=== PATIENT | female | born 1975 | race Caucasian/White ===

== ENCOUNTER → 2021-12-25 07:16 | Outpatient (CLI) | payer BC, SELFPAY ==
[2021-12-25 20:39] LABS: Basophils # 0.1 K/mm3 (0-0.2); Basophils % 0.6 % (0.1-2.0); Eosinophils # 0.5 K/mm3 (0.0-0.4); Eosinophils % 5.8 % (0.1-12.0); Hematocrit 39.4 % (37.0-47.0); Hemoglobin 11.3 g/dL (12.2-16.2); Lymphocytes # 0.4 K/mm3 (0.7-4.5); Lymphocytes % 4.3 % (10-50); Mean Corpuscular HGB Conc 28.8 g/dL (31.8-35.4); Mean Corpuscular Hemoglobin 24.9 pg (27.0-31.2); Mean Corpuscular Volume 86.4 fl (81-99); Mean Platelet Volume 10.2 fl (7.4-10.4); Monocytes # 0.4 K/mm3 (0.1-1.0); Monocytes % 5.2 % (1.7-9.3); Neutrophils # 6.9 K/mm3 (1.8-7.8); Neutrophils % 84.1 % (37.0-80.0); Platelet Count 457 K/mm3 (142-424); Red Blood Count 4.56 M/mm3 (4.20-5.40); Red Cell Distribution Width 22.4 % (11.5-17.5); White Blood Count 8.2 K/mm3 (4.8-10.8)
[2021-12-25 20:45] LABS: Microalbumin < 6.000 mg/L (0-16.7)
[2021-12-25 20:52] LABS: Free T4 (Free Thyroxine) 1.27 ng/dl (0.78-2.19)
[2021-12-25 20:59] LABS: Alanine Aminotransferase 29 U/L (12-78); Albumin Level 3.7 g/dl (3.5-5.0); Albumin/Globulin Ratio 1.1 (1.1-1.8); Alkaline Phosphatase 115 U/L (38-126); Anion Gap 10.4 mEq/L (5-15); Aspartate Amino Transferase 30 U/L (14-36); Blood Urea Nitrogen 12 mg/dl (7-17); Calcium 9.8 mg/dl (8.4-10.2); Carbon Dioxide 26 mmol/L (22.0-30.0); Chloride 107 mmol/L (98-107); Chol/HDL Ratio 5.9 (1-3.5); Cholesterol 266 mg/dl (140-200); Estimated Glomerular Filt Rate 49 ml/min (>60); GFR (African American) 59 ML/MIN (>60); Globulin 3.3 g/dL (1.3-3.2); Glucose 94 mg/dl (74-100); HDL Cholesterol 45 mg/dl (40-60); Potassium 4.4 mmoL/L (3.5-5.1); Sodium 139 mmol/L (136-145); Triglycerides 296 mg/dl (30-150); VLDL Cholesterol 59 mg/dL (0-40)
[2021-12-25 21:03] LABS: Bilirubin,Total 0.1 mg/dl (0.2-1.3)
[2021-12-25 21:16] LABS: 25-OH Vitamin D, Total 49.9 ng/mL (30-100)
[2021-12-25 21:29] LABS: Thyroid Stimulating Hormone 0.09 uIU/mL (0.465-4.68)
[2021-12-25 21:50] LABS: Vitamin B12 > 1000 pg/mL (239-931)
[2021-12-27 08:25] LABS: Direct LDL Cholesterol 162 mg/dL (100-129)
== END ==
PROVIDERS: PCP Nurse Practitioner; Visit Provider Nurse Practitioner
DX: I10 Essential (primary) hypertension (principal); R30.0 Dysuria; E55.9 Vitamin D deficiency, unspecified; E03.9 Hypothyroidism, unspecified; D64.9 Anemia, unspecified; R73.01 Impaired fasting glucose; E53.8 Deficiency of other specified B group vitamins; B96.29 Other Escherichia coli [E. coli] as the cause of diseases classified elsewhere
CPT/HCPCS: 80053; 80061; 82043; 82306; 82607; 83036; 84439; 84443; 85025; 87086; 87088; 87186

== ENCOUNTER → 2022-02-27 13:43 | Outpatient (CLI) | payer BC, SELFPAY ==
[2022-02-27 19:16] LABS: Alanine Aminotransferase 25 U/L (12-78); Albumin Level 4.1 g/dl (3.5-5.0); Albumin/Globulin Ratio 1.4 (1.1-1.8); Alkaline Phosphatase 122 U/L (38-126); Anion Gap 15.9 mEq/L (5-15); Aspartate Amino Transferase 30 U/L (14-36); Bilirubin,Total 0.3 mg/dl (0.2-1.3); Blood Urea Nitrogen 11 mg/dl (7-17); Calcium 10.2 mg/dl (8.4-10.2); Carbon Dioxide 26 mmol/L (22.0-30.0); Chloride 102 mmol/L (98-107); Estimated Glomerular Filt Rate 54 ml/min (>60); GFR (African American) 65 ML/MIN (>60); Globulin 2.9 g/dL (1.3-3.2); Glucose 91 mg/dl (74-100); Potassium 3.9 mmoL/L (3.5-5.1); Sodium 140 mmol/L (136-145)
[2022-02-27 19:33] LABS: Free T4 (Free Thyroxine) 1.06 ng/dl (0.78-2.19)
[2022-02-27 19:47] LABS: Thyroid Stimulating Hormone < 0.02 uIU/mL (0.465-4.68)
[2022-02-27 20:02] LABS: Hemoglobin A1C 5.5 % (4.0-6.0)
== END ==
PROVIDERS: PCP Nurse Practitioner; Visit Provider Nurse Practitioner
DX: E03.9 Hypothyroidism, unspecified (principal); R73.01 Impaired fasting glucose; N30.00 Acute cystitis without hematuria; Z79.84 Long term (current) use of oral hypoglycemic drugs
CPT/HCPCS: 80053; 83036; 84439; 84443; 87086

== ENCOUNTER → 2022-06-03 23:27 | Outpatient (CLI) | payer BC, SELFPAY ==
[2022-06-03 18:29] LABS: Basophils # 0.1 K/mm3 (0-0.2); Basophils % 0.7 % (0.1-2.0); Eosinophils # 0.4 K/mm3 (0.0-0.4); Eosinophils % 4.4 % (0.1-12.0); Hematocrit 45.2 % (37.0-47.0); Hemoglobin 14.5 g/dL (12.2-16.2); Lymphocytes # 0.4 K/mm3 (0.7-4.5); Lymphocytes % 4.1 % (10-50); Mean Corpuscular HGB Conc 32.1 g/dL (31.8-35.4); Mean Corpuscular Hemoglobin 30.8 pg (27.0-31.2); Mean Corpuscular Volume 95.8 fl (81-99); Mean Platelet Volume 9.7 fl (7.4-10.4); Monocytes # 0.4 K/mm3 (0.1-1.0); Monocytes % 4.5 % (1.7-9.3); Neutrophils # 8.5 K/mm3 (1.8-7.8); Neutrophils % 86.3 % (37.0-80.0); Platelet Count 372 K/mm3 (142-424); Red Blood Count 4.72 M/mm3 (4.20-5.40); Red Cell Distribution Width 15.2 % (11.5-17.5); White Blood Count 9.8 K/mm3 (4.8-10.8)
[2022-06-03 18:32] LABS: MANUAL DIFFERENTIAL MANUAL DIFFERENTIAL (MANUAL DIFF)
[2022-06-03 18:34] LABS: Alanine Aminotransferase 37 U/L (12-78); Albumin Level 4.3 g/dl (3.5-5.0); Albumin/Globulin Ratio 1.4 (1.1-1.8); Alkaline Phosphatase 105 U/L (38-126); Anion Gap 13.2 mEq/L (5-15); Aspartate Amino Transferase 34 U/L (14-36); Bilirubin,Total 0.4 mg/dl (0.2-1.3); Blood Urea Nitrogen 12 mg/dl (7-17); Calcium 9.3 mg/dl (8.4-10.2); Carbon Dioxide 24 mmol/L (22.0-30.0); Chloride 104 mmol/L (98-107); Chol/HDL Ratio 6.6 (1-3.5); Cholesterol 271 mg/dl (140-200); Estimated Glomerular Filt Rate 60 ml/min (>60); GFR (African American) 73 ML/MIN (>60); Glucose 84 mg/dl (74-100); HDL Cholesterol 41 mg/dl (40-60); Potassium 4.2 mmoL/L (3.5-5.1); Sodium 137 mmol/L (136-145); Total Protein,Serum 7.3 g/dl (6.3-8.2); Triglycerides 374 mg/dl (30-150); VLDL Cholesterol 75 mg/dL (0-40)
[2022-06-03 18:51] LABS: Direct LDL Cholesterol 185.02 mg/dL (100-129)
[2022-06-03 18:58] LABS: Free T4 (Free Thyroxine) 0.96 ng/dl (0.78-2.19)
[2022-06-03 19:22] LABS: Eosinophils % 6 % (0-3); Lymphocytes % 5 % (10-50); Monocytes % 10 % (2-9); Neutrophils % 79 % (42-76); Platelet Estimate Normal; RBC Morphology Normal; Total Cells Counted 100
== END ==
PROVIDERS: PCP Nurse Practitioner; Visit Provider Nurse Practitioner
DX: E03.9 Hypothyroidism, unspecified (principal); I10 Essential (primary) hypertension; E78.5 Hyperlipidemia, unspecified; R73.01 Impaired fasting glucose; D64.9 Anemia, unspecified
CPT/HCPCS: 80053; 80061; 83036; 84439; 84443; 85007; 85025

== ENCOUNTER → 2022-07-08 11:08 | Outpatient (CLI) | payer BC, SELFPAY | PROVIDERS: PCP Nurse Practitioner; Visit Provider Nurse Practitioner | DX: R30.0 Dysuria (principal); B96.29 Other Escherichia coli [E. coli] as the cause of diseases classified elsewhere | CPT/HCPCS: 87086; 87088; 87186 ==

== ENCOUNTER → 2022-07-08 19:14 | Outpatient (CLI) | payer BC, SELFPAY | PROVIDERS: PCP Nurse Practitioner; Visit Provider Nurse Practitioner | DX: R30.0 Dysuria (principal) ==

== ENCOUNTER → 2022-09-19 20:45 | Outpatient (CLI) | payer BC, SELFPAY | PROVIDERS: PCP Nurse Practitioner; Visit Provider Nurse Practitioner | DX: R30.0 Dysuria (principal); B95.2 Enterococcus as the cause of diseases classified elsewhere | CPT/HCPCS: 87086; 87088; 87186 ==

== ENCOUNTER → 2022-11-07 10:40 | Outpatient (CLI) | payer BC, SELFPAY ==
[2022-11-07 18:19] LABS: Basophils % 0.2 % (0.1-2.0); Eosinophils # 0.3 K/mm3 (0.0-0.4); Eosinophils % 3.9 % (0.1-12.0); Hemoglobin 14.3 g/dL (12.2-16.2); Lymphocytes # 0.5 K/mm3 (0.7-4.5); Lymphocytes % 6.7 % (10-50); Mean Corpuscular HGB Conc 31.7 g/dL (31.8-35.4); Mean Corpuscular Hemoglobin 30.2 pg (27.0-31.2); Mean Corpuscular Volume 95.3 fl (81-99); Monocytes # 0.5 K/mm3 (0.1-1.0); Monocytes % 6.3 % (1.7-9.3); Neutrophils # 6.6 K/mm3 (1.8-7.8); Neutrophils % 82.9 % (37.0-80.0); Platelet Count 313 K/mm3 (142-424); Red Blood Count 4.72 M/mm3 (4.20-5.40); Red Cell Distribution Width 14.1 % (11.5-17.5); White Blood Count 7.9 K/mm3 (4.8-10.8)
[2022-11-07 18:26] LABS: Alanine Aminotransferase 60 U/L (12-78); Albumin Level 4.2 g/dl (3.5-5.0); Albumin/Globulin Ratio 1.4 (1.1-1.8); Alkaline Phosphatase 127 U/L (38-126); Anion Gap 13.2 mEq/L (5-15); Aspartate Amino Transferase 41 U/L (14-36); Bilirubin,Total 0.5 mg/dl (0.2-1.3); Blood Urea Nitrogen 15 mg/dl (7-17); Calcium 9.5 mg/dl (8.4-10.2); Carbon Dioxide 23 mmol/L (22.0-30.0); Chloride 105 mmol/L (98-107); Chol/HDL Ratio 6.4 (1-3.5); Cholesterol 257 mg/dl (140-200); Estimated Glomerular Filt Rate 44 ml/min (>60); GFR (African American) 54 ML/MIN (>60); Globulin 2.9 g/dL (1.3-3.2); Glucose 86 mg/dl (74-100); HDL Cholesterol 40 mg/dl (40-60); Potassium 4.2 mmoL/L (3.5-5.1); Sodium 137 mmol/L (136-145); Total Protein,Serum 7.1 g/dl (6.3-8.2); Triglycerides 261 mg/dl (30-150); VLDL Cholesterol 52 mg/dL (0-40)
[2022-11-07 18:36] LABS: Direct LDL Cholesterol 171.13 mg/dL (100-129)
[2022-11-07 18:42] LABS: Free T4 (Free Thyroxine) 1.34 ng/dl (0.78-2.19)
[2022-11-07 18:43] LABS: 25-OH Vitamin D, Total 44.2 ng/mL (30-100)
[2022-11-07 18:54] LABS: Hemoglobin A1C 5.1 % (4.0-6.0)
[2022-11-07 18:57] LABS: Thyroid Stimulating Hormone < 0.02 uIU/mL (0.465-4.68)
[2022-11-07 19:50] LABS: Vitamin B12 > 1000 pg/mL (239-931)
== END ==
PROVIDERS: PCP Nurse Practitioner; Visit Provider Nurse Practitioner
DX: D64.9 Anemia, unspecified (principal); E03.9 Hypothyroidism, unspecified; E53.8 Deficiency of other specified B group vitamins; E55.9 Vitamin D deficiency, unspecified; E66.9 Obesity, unspecified; E78.5 Hyperlipidemia, unspecified; I10 Essential (primary) hypertension; K21.9 Gastro-esophageal reflux disease without esophagitis; R73.01 Impaired fasting glucose
CPT/HCPCS: 80053; 80061; 82306; 82607; 83036; 84439; 84443; 85025

== ENCOUNTER → 2023-01-07 11:00 | Outpatient (CLI) | payer BC, SELFPAY | PROVIDERS: PCP Nurse Practitioner; Visit Provider Nurse Practitioner | DX: N30.00 Acute cystitis without hematuria (principal) | CPT/HCPCS: 87086 ==

== ENCOUNTER → 2023-02-04 23:16 | Outpatient (CLI) | payer BC, SELFPAY ==
[2023-02-04 18:33] LABS: Alanine Aminotransferase 45 U/L (12-78); Albumin Level 3.9 g/dl (3.5-5.0); Albumin/Globulin Ratio 1.3 (1.1-1.8); Alkaline Phosphatase 97 U/L (38-126); Anion Gap 16.9 mEq/L (5-15); Aspartate Amino Transferase 36 U/L (14-36); Bilirubin,Total 0.3 mg/dl (0.2-1.3); Blood Urea Nitrogen 16 mg/dl (7-17); Calcium 9.5 mg/dl (8.4-10.2); Carbon Dioxide 21 mmol/L (22.0-30.0); Chloride 105 mmol/L (98-107); Estimated Glomerular Filt Rate 54 ml/min (>60); GFR (African American) 65 ML/MIN (>60); Globulin 3.1 g/dL (1.3-3.2); Glucose 64 mg/dl (74-100); Potassium 3.9 mmoL/L (3.5-5.1); Sodium 139 mmol/L (136-145)
[2023-02-04 21:56] LABS: Free T4 (Free Thyroxine) 1.39 ng/dl (0.78-2.19)
[2023-02-05 00:29] LABS: Thyroid Stimulating Hormone 1.72 uIU/mL (0.465-4.68)
== END ==
PROVIDERS: PCP Nurse Practitioner; Visit Provider Nurse Practitioner
DX: E03.9 Hypothyroidism, unspecified (principal); E66.9 Obesity, unspecified
CPT/HCPCS: 80053; 84439; 84443

== ENCOUNTER 2023-04-28 23:20 | Outpatient (CLI) | payer BC, SELFPAY ==
[2023-04-28 18:34] LABS: Hemoglobin A1C 4.7 % (4.0-6.0)
[2023-04-28 18:37] LABS: Alanine Aminotransferase 47 U/L (12-78); Albumin Level 3.9 g/dl (3.5-5.0); Albumin/Globulin Ratio 1.6 (1.1-1.8); Alkaline Phosphatase 85 U/L (38-126); Anion Gap 12.5 mEq/L (5-15); Aspartate Amino Transferase 45 U/L (14-36); Bilirubin,Total 0.5 mg/dl (0.2-1.3); Blood Urea Nitrogen 15 mg/dl (7-17); Carbon Dioxide 25 mmol/L (22.0-30.0); Chloride 101 mmol/L (98-107); Chol/HDL Ratio 6.3 (1-3.5); Cholesterol 222 mg/dl (140-200); Estimated Glomerular Filt Rate 38 ml/min (>60); GFR (African American) 45 ML/MIN (>60); Globulin 2.5 g/dL (1.3-3.2); Glucose 81 mg/dl (74-100); HDL Cholesterol 35 mg/dl (40-60); Potassium 3.5 mmoL/L (3.5-5.1); Sodium 135 mmol/L (136-145); Total Protein,Serum 6.4 g/dl (6.3-8.2); Triglycerides 215 mg/dl (30-150); VLDL Cholesterol 43 mg/dL (0-40)
[2023-04-28 18:45] LABS: Creatinine,Urine Random 136 mg/dL (Not Estab.)
[2023-04-28 18:48] LABS: Direct LDL Cholesterol 149.92 mg/dL (100-129)
[2023-04-28 18:52] LABS: Microalbumin/Creatinine Ratio 35.3
[2023-04-28 18:53] LABS: 25-OH Vitamin D, Total 67.6 ng/mL (30-100); Free T4 (Free Thyroxine) 1.27 ng/dl (0.78-2.19)
[2023-04-28 19:07] LABS: Thyroid Stimulating Hormone 1.97 uIU/mL (0.465-4.68)
[2023-04-28 19:26] LABS: Vitamin B12 617 pg/mL (239-931)
== END 2023-04-28 23:59 ==
LOC: LAB.DROPOF 23:20
PROVIDERS: PCP Nurse Practitioner; Visit Provider Nurse Practitioner
DX: E03.9 Hypothyroidism, unspecified (principal); E53.8 Deficiency of other specified B group vitamins; E55.9 Vitamin D deficiency, unspecified; E78.5 Hyperlipidemia, unspecified; I10 Essential (primary) hypertension; R73.01 Impaired fasting glucose; E66.9 Obesity, unspecified; Z68.38 Body mass index [BMI] 38.0-38.9, adult
CPT/HCPCS: 80053; 80061; 82043; 82306; 82570; 82607; 83036; 84439; 84443

== ENCOUNTER 2023-07-17 18:53 | Outpatient (CLI) | payer BC, SELFPAY ==
[2023-07-17 18:14] LABS: Alanine Aminotransferase 36 U/L (12-78); Albumin Level 3.9 g/dl (3.5-5.0); Albumin/Globulin Ratio 1.6 (1.1-1.8); Alkaline Phosphatase 74 U/L (38-126); Anion Gap 12.2 mEq/L (5-15); Aspartate Amino Transferase 27 U/L (14-36); Bilirubin,Total 0.4 mg/dl (0.2-1.3); Blood Urea Nitrogen 25 mg/dl (7-17); Carbon Dioxide 26 mmol/L (22.0-30.0); Chloride 105 mmol/L (98-107); Estimated Glomerular Filt Rate 37 ml/min (>60); GFR (African American) 45 ML/MIN (>60); Globulin 2.5 g/dL (1.3-3.2); Glucose 81 mg/dl (74-100); Potassium 4.2 mmoL/L (3.5-5.1); Sodium 139 mmol/L (136-145); Total Protein,Serum 6.4 g/dl (6.3-8.2)
== END 2023-07-17 23:59 ==
LOC: LAB.DROPOF 18:53
PROVIDERS: PCP Nurse Practitioner; Visit Provider Nurse Practitioner
DX: E66.9 Obesity, unspecified (principal); Z68.36 Body mass index [BMI] 36.0-36.9, adult
CPT/HCPCS: 80053

== ENCOUNTER 2023-12-11 11:18 | Outpatient (CLI) | payer BC, SELFPAY ==
[2023-12-11 20:04] LABS: Basophils % 0.3 % (0.1-2.0); Eosinophils # 0.4 K/mm3 (0.0-0.4); Eosinophils % 6.8 % (0.1-12.0); Hematocrit 41.8 % (37.0-47.0); Hemoglobin 12.9 g/dL (12.2-16.2); Lymphocytes # 0.4 K/mm3 (0.7-4.5); Lymphocytes % 6.3 % (10-50); Mean Corpuscular HGB Conc 30.9 g/dL (31.8-35.4); Mean Corpuscular Hemoglobin 30.3 pg (27.0-31.2); Mean Corpuscular Volume 97.8 fl (81-99); Mean Platelet Volume 9.8 fl (7.4-10.4); Monocytes # 0.4 K/mm3 (0.1-1.0); Monocytes % 7.1 % (1.7-9.3); Neutrophils # 4.6 K/mm3 (1.8-7.8); Neutrophils % 79.6 % (37.0-80.0); Platelet Count 300 K/mm3 (142-424); Red Blood Count 4.27 M/mm3 (4.20-5.40); Red Cell Distribution Width 14.1 % (11.5-17.5); White Blood Count 5.8 K/mm3 (4.8-10.8)
[2023-12-11 20:07] LABS: Creatinine,Urine Random 19 mg/dL (Not Estab.)
[2023-12-11 20:10] LABS: Alanine Aminotransferase 36 U/L (12-78); Albumin Level 3.4 g/dl (3.5-5.0); Albumin/Globulin Ratio 1.2 (1.1-1.8); Alkaline Phosphatase 82 U/L (38-126); Anion Gap 7.1 mEq/L (5-15); Aspartate Amino Transferase 29 U/L (14-36); Bilirubin,Total 0.5 mg/dl (0.2-1.3); Blood Urea Nitrogen 21 mg/dl (7-17); Calcium 9.4 mg/dl (8.4-10.2); Carbon Dioxide 29 mmol/L (22.0-30.0); Chloride 103 mmol/L (98-107); Chol/HDL Ratio 5.8 (1-3.5); Cholesterol 261 mg/dl (140-200); Estimated Glomerular Filt Rate 48 ml/min (>60); GFR (African American) 59 ML/MIN (>60); Globulin 2.9 g/dL (1.3-3.2); Glucose 65 mg/dl (74-100); HDL Cholesterol 45 mg/dl (40-60); Microalbumin < 6.000 mg/L (0-16.7); Potassium 4.1 mmoL/L (3.5-5.1); Sodium 135 mmol/L (136-145); Total Protein,Serum 6.3 g/dl (6.3-8.2); Triglycerides 279 mg/dl (30-150); VLDL Cholesterol 56 mg/dL (0-40)
[2023-12-11 20:21] LABS: Direct LDL Cholesterol 173.89 mg/dL (100-129)
[2023-12-11 20:27] LABS: Free T4 (Free Thyroxine) 1.56 ng/dl (0.78-2.19)
[2023-12-11 20:32] LABS: Hemoglobin A1C 4.5 % (4.0-6.0)
[2023-12-11 20:40] LABS: Thyroid Stimulating Hormone < 0.02 uIU/mL (0.465-4.68)
[2023-12-11 21:13] LABS: Vitamin B12 > 1000 pg/mL (239-931)
[2023-12-11 21:42] LABS: 25-OH Vitamin D, Total 51.7 ng/mL (30-100)
== END 2023-12-11 23:59 | disposition home or self-care (01) ==
LOC: LAB.DROPOF 12-12 11:18
PROVIDERS: PCP Nurse Practitioner; Visit Provider Nurse Practitioner
DX: I10 Essential (primary) hypertension (principal); Z72.0 Tobacco use; K21.9 Gastro-esophageal reflux disease without esophagitis; E03.9 Hypothyroidism, unspecified; D64.9 Anemia, unspecified; R73.01 Impaired fasting glucose; E53.8 Deficiency of other specified B group vitamins; E55.9 Vitamin D deficiency, unspecified; E78.5 Hyperlipidemia, unspecified; E66.9 Obesity, unspecified; Z68.34 Body mass index [BMI] 34.0-34.9, adult; B35.1 Tinea unguium
CPT/HCPCS: 80050; 80053; 80061; 82043; 82306; 82570; 82607; 83036; 84439; 84443; 85025

== ENCOUNTER 2024-01-08 19:20 | Outpatient (CLI) | payer BC, SELFPAY ==
[2024-01-08 19:04] LABS: Alanine Aminotransferase 32 U/L (12-78); Albumin Level 3.6 g/dl (3.5-5.0); Albumin/Globulin Ratio 1.2 (1.1-1.8); Alkaline Phosphatase 72 U/L (38-126); Aspartate Amino Transferase 28 U/L (14-36); Bilirubin,Total 0.5 mg/dl (0.2-1.3); Blood Urea Nitrogen 25 mg/dl (7-17); Calcium 9.5 mg/dl (8.4-10.2); Carbon Dioxide 28 mmol/L (22.0-30.0); Chloride 104 mmol/L (98-107); Estimated Glomerular Filt Rate 37 ml/min (>60); GFR (African American) 45 ML/MIN (>60); Globulin 2.9 g/dL (1.3-3.2); Glucose 82 mg/dl (74-100); Sodium 137 mmol/L (136-145); Total Protein,Serum 6.5 g/dl (6.3-8.2)
== END 2024-01-08 23:59 | disposition home or self-care (01) ==
LOC: LAB.DROPOF 19:20
PROVIDERS: PCP Nurse Practitioner; Visit Provider Nurse Practitioner
DX: K21.9 Gastro-esophageal reflux disease without esophagitis (principal)
CPT/HCPCS: 80053

== ENCOUNTER 2024-02-10 18:37 | Outpatient (CLI) | payer BC, SELFPAY ==
[2024-02-10 20:08] LABS: Chloride 102 mmol/L (98-107); Sodium 136 mmol/L (136-145)
[2024-02-10 20:11] LABS: Blood Urea Nitrogen 25 mg/dl (7-17); Carbon Dioxide 28 mmol/L (22.0-30.0); Estimated Glomerular Filt Rate 32 ml/min (>60); GFR (African American) 39 ML/MIN (>60)
[2024-02-10 20:12] LABS: Calcium 9.6 mg/dl (8.4-10.2); Glucose 67 mg/dl (74-100)
== END 2024-02-10 23:59 | disposition home or self-care (01) ==
LOC: LAB.DROPOF 18:38
PROVIDERS: PCP Nurse Practitioner; Visit Provider Nurse Practitioner
DX: N28.9 Disorder of kidney and ureter, unspecified (principal)
CPT/HCPCS: 80048

== ENCOUNTER 2024-04-27 12:00 | Outpatient (CLI) | payer BC, SELFPAY ==
[2024-04-27 18:05] LABS: Creatinine,Urine Random 48 mg/dL (Not Estab.)
[2024-04-27 18:06] LABS: Basophils # 0.1 K/mm3 (0-0.2); Basophils % 0.6 % (0.1-2.0); Eosinophils # 0.5 K/mm3 (0.0-0.4); Eosinophils % 6.1 % (0.1-12.0); Hematocrit 40.1 % (37.0-47.0); Hemoglobin 12.8 g/dL (12.2-16.2); Lymphocytes # 0.2 K/mm3 (0.7-4.5); Lymphocytes % 2.7 % (10-50); Mean Corpuscular HGB Conc 31.9 g/dL (31.8-35.4); Mean Corpuscular Hemoglobin 30.2 pg (27.0-31.2); Mean Corpuscular Volume 94.6 fl (81-99); Mean Platelet Volume 10.8 fl (7.4-10.4); Monocytes # 0.7 K/mm3 (0.1-1.0); Monocytes % 8.8 % (1.7-9.3); Neutrophils # 6.3 K/mm3 (1.8-7.8); Neutrophils % 81.4 % (37.0-80.0); Platelet Count 324 K/mm3 (142-424); Red Blood Count 4.24 M/mm3 (4.20-5.40); Red Cell Distribution Width 13.3 % (11.5-17.5); White Blood Count 7.7 K/mm3 (4.8-10.8)
[2024-04-27 18:07] LABS: Microalbumin/Creatinine Ratio 46.8
[2024-04-27 18:27] LABS: Alanine Aminotransferase 30 U/L (12-78); Albumin Level 3.9 g/dl (3.5-5.0); Albumin/Globulin Ratio 1.7 (1.1-1.8); Alkaline Phosphatase 80 U/L (38-126); Anion Gap 11.5 mEq/L (5-15); Aspartate Amino Transferase 29 U/L (14-36); Bilirubin,Total 0.5 mg/dl (0.2-1.3); Blood Urea Nitrogen 29 mg/dl (7-17); Calcium 9.6 mg/dl (8.4-10.2); Carbon Dioxide 27 mmol/L (22.0-30.0); Chloride 102 mmol/L (98-107); Estimated Glomerular Filt Rate 35 ml/min (>60); GFR (African American) 42 ML/MIN (>60); Globulin 2.3 g/dL (1.3-3.2); Glucose 72 mg/dl (74-100); Potassium 4.5 mmoL/L (3.5-5.1); Sodium 136 mmol/L (136-145); Total Protein,Serum 6.2 g/dl (6.3-8.2)
[2024-04-27 18:37] LABS: Free T4 (Free Thyroxine) 1.21 ng/dl (0.78-2.19)
[2024-04-27 18:44] LABS: Hemoglobin A1C 4.6 % (4.0-6.0)
[2024-04-27 18:51] LABS: Thyroid Stimulating Hormone 2.77 uIU/mL (0.465-4.68)
== END 2024-04-27 23:59 | disposition home or self-care (01) ==
LOC: LAB.DROPOF 04-28 13:31
PROVIDERS: PCP Nurse Practitioner; Visit Provider Nurse Practitioner
DX: E03.9 Hypothyroidism, unspecified (principal); D64.9 Anemia, unspecified; R73.01 Impaired fasting glucose; K21.9 Gastro-esophageal reflux disease without esophagitis; I10 Essential (primary) hypertension; F17.210 Nicotine dependence, cigarettes, uncomplicated
CPT/HCPCS: 80053; 82043; 82570; 83036; 84439; 84443; 85025

== ENCOUNTER 2024-07-30 08:14 | Outpatient (CLI) | payer BC, SELFPAY ==
[2024-07-30 18:53] LABS: Chloride 106 mmol/L (98-107); Potassium 4.3 mmoL/L (3.5-5.1); Sodium 139 mmol/L (136-145)
[2024-07-30 18:56] LABS: Anion Gap 11.3 mEq/L (5-15); Blood Urea Nitrogen 13 mg/dl (7-17); Carbon Dioxide 26 mmol/L (22.0-30.0); Estimated Glomerular Filt Rate 37 ml/min (>60); GFR (African American) 45 ML/MIN (>60)
[2024-07-30 18:57] LABS: Calcium 9.3 mg/dl (8.4-10.2); Glucose 72 mg/dl (74-100)
[2024-08-02 13:32] LABS: Cortisol,AM 18.3 ug/dL (6.2-19.4)
== END 2024-07-30 23:59 | disposition home or self-care (01) ==
LOC: LAB.DROPOF 08-04 09:23
PROVIDERS: PCP Nurse Practitioner; Visit Provider Nurse Practitioner
DX: N18.32 Chronic kidney disease, stage 3b (principal); R53.83 Other fatigue
CPT/HCPCS: 80048; 82533

== ENCOUNTER → 2024-08-24 12:46 | Outpatient (CLI) | payer BC, SELFPAY | LOC: SL 12:46 | PROVIDERS: PCP Nurse Practitioner; Visit Provider Nurse Practitioner | DX: G47.33 Obstructive sleep apnea (adult) (pediatric) (principal) | CPT/HCPCS: G0399 ==

== ENCOUNTER 2024-10-27 13:00 | Outpatient (CLI) | payer BC, SELFPAY ==
--- OUTSIDE RECORDS SUMMARY | 2024-08-26 13:30 | XMS_ITS | Encounter Summary ---
Author Organization [facility] Address [address] [place] [id number] Care Team Providers Care Parboiler Name Role Phone Toby Riley MD Primary Care Provider [phone] Source Comments This information has been disclosed to you from confidential records protectfrom disclosure by state law. You shall make no further disclosure of thisinformation without the specific, written, and informed release of theindividual to whom it pertains, or as otherwise permitted by law. A generalauthorization for the release of medical or other information is not sufficientfor the purposes of the release of HIV test results or diagnoses. MVW6789.24 Health Reason for Visit * Reason Comments New Patient Visit/ Consultation No speci fic concerns. * Physician/LAMBERT (Routine) - Closed Specialty Diagnoses / Procedures Referred By Ivana duval Referred To Contact [facility] Gastroenterology Diagnoses H/O gastric bypass Eleanor Cervantes MD [address] [place] [address] Phone: tel: fax: Referral ID Status Reason Start Date Expiration Date Visits Re quested Visits Authorized [id number] Closed 06/06/2024 12/03/2024 1 1 Encounter Details Date Type Department Care Team (Latest Contact Info) Description 08/26/2024 1:30 PM EDT Office Visit [facility] [address] [facility] [address] [place] [address] Kate Daniel, [employer] HOUSEPERSON [address] [place] [address] Constipation, unspecified constipation type (Primary Dx); Rectal bleeding; Dysphagia, unspecified type; Indigestion Social History Tobacco Use Types Packs/Day Years Used Date Smoking Tobacco: Former Cigarettes 0.5 15 0 04/2008 - 04/2023 Smokeless Tobacco: Never Tobacco Cessation:Counseling Given: Not Answered Comments:1 PACK DAILY X'S 7 1/2 YRS TOTAL Alcohol Use Standard Drinks/Week Comments No 0 (1 standard drink = 0.6 oz pur e alcohol) PHQ-2 Answer Date Recorded PHQ-2 Total Score 0 05/03/2024 Yearly Questionnaire Answer Date Record ed Do you need any assistance w ith obtaining housing, meals, medication, transportation or medical equipment? No 05/03 Assistance needed for: Not on file Yearly Questionnaire Answer Date Record ed Do you need any assistance w ith obtaining housing, meals, medication, transportation or medical equipment? No 05/03 Assistance needed for: Not on file 5 Yearly Questionnaire Answer Date Record ed Do you need any assistance w ith obtaining housing, meals, medication, transportation or medical equipment? No 05/03 Assistance needed for: Not on file 5 Comments No Sex and Gender Information Value Date Recorded Sex Assigned at Female 06/05/2021 1:21 AM EST Legal Sex Female 4:16 PM EST Gender Identity Female 06/05/2021 1:21 AM EST Sexual Orientation Straight 06/05/2021 1: 21 AM EST documented as of this encounter Last Filed Vital Signs Vital Sign Reading Time Taken Comments Blood Pressure 103/70 08/26/2024 1:12 PM EDT Pulse 83 08/26/2024 1:12 PM EDT Temperature - - Respiratory Rate - - Oxygen Saturation 99% 08/26/2024 1:12 PM EDT Inhaled Oxygen Concentration 99% 08/26/2024 1 :12 PM EDT Weight 98.4 kg (217 lb) 08/26/2024 1:12 PM EDT Height 162.6 cm (5' 4 ) 08/26/2024 1:12 PM EDT Body Mass Index 37.25 08/26/2024 1:12 PM EDT documented in this encounter Patient Instructions * Patient Instructions* Kate Daniel, [employer] HOUSEPERSON - 08/26/2024 1:30 PM EDT Schedule EGD and colonoscopy Start Linzess for constipation - 1 capsule daily Continue to drink plenty of water Follow up pending endoscopy findings documented in this encounter Progress Notes * Kate Daniel CNP - 08/26/2024 1:30 PM EDT GASTROENTEROLOGY OFFICE VISIT Anastasiya Matute is 49 y.o. female presents for NPV- Elevated P-ANCA, per rheumatology needs to see GI History of bypass has GERD, history of hematochezia, melena , referred per Eleanor Gonzalez MD PMH: obesity, depression, HTN, double vision, hx Rheumatic fever, anxiety, GERD, dysphagia, migraine, flexural atopic dermatitis, hypothyroidism, frequent UTI, constipation PSH: gastric bypass Fam Hx: hemophilia A Social: former tobacco use - quit 04/2023 Interval hx (08/23/2024) Patient presents per rhumatology for evaluation of elevated P ANCA States she has been feeling okay Minimal abdominal pain that is intermittent Denies nausea, vomiting + indigestion- worse after she eats or during the day if she doesn't eat + dysphagia, states when she tries to swallow it can be difficult and she feels like food goes downslowly but denies feeling of retained food/fluid/medication in her esophagus Occasional reflux- she takes Pepcid with improvement,states that she only started it two months ago States she is constipated, stools are hard and hard to get out. She will go 7 days with no bowel movement, up to 14 days was the longest she went without having a bowel movement States that she has been having bright red blood with her stools- present in the toilet and on tissue, occurs with each stool She will take an OTC laxative/stool softener when this occurs, sometimes it helps and sometimes it doesn't Denies use of anticoagulation, ASA or NSAID Denies alcohol use, former smoker - does vape nicotine She is taking zepbound for weight loss, she has a decreased appetite from the medication Denies use of narcotics Denies use of new medications or antibiotics Drinks five 12 oz bottles of water per day, 2 to 3 cans of soda per day Last colonoscopy in 2018 with colon polyps- path with tubular adenoma Denies fevers, chills, shortness of breath or cough Reports having numbness and tingling on the left side of her body in hands, feet and face- this hasbeen present chronically Grandfather with history of colon cancer, no known family history of pancreatic cancer, liver cancer or gastric cancer. Denies history of breast cancer. Procedure history: EGD 05/31/2016: Impression: - Normal esophagus. - Normal stomach. Biopsied. - A gastric bypass was found, characterized by healthy appearing mucosa. - Normal examined jejunum. EGD/Colonoscopy 03/2019 for RODY, report not found: FINAL DIAGNOSIS A. Stomach, biopsy: - Antral- and oxyntic-type gastric mucosa with no significant pathologic abnormality. - Negative for H. Pylori (H&E stain). B. Lower esophagus, biopsy: - Changes consistent with mild reflux esophagitis. - Negative for dysplasia and malignancy. C. Colon, random, biopsy: - Benign colonic mucosa with no significant pathologic abnormality. - No evidence of microscopic colitis. D. Ascending colon, polyp, biopsy: - Tubular adenoma. - Negative for high-grade dysplasia and carcinoma. Testing history: Review of Systems Constitutional: Negative for chills. Respiratory: Negative for cough and shortness of breath. Gastrointestinal: Positive for abdominal pain, blood in stool, constipation and heartburn. All other systems reviewed and are negative. Physical Exam Vitals reviewed. Constitutional: Appearance: Normal appearance. HENT: Head: Normocephalic. Nose: Nose normal. Mouth/Throat: Mouth: Mucous membranes are moist. Pharynx: Oropharynx is clear. Eyes: Pupils: Pupils are equal, round, and reactive to light. Cardiovascular: Rate and Rhythm: Normal rate and regular rhythm. Pulses: Normal pulses. Pulmonary: Effort: Pulmonary effort is normal. Abdominal: General: Bowel sounds are normal. Musculoskeletal: General: Normal range of motion. Cervical back: Normal range of motion. Skin: General: Skin is warm and dry. Neurological: Mental Status: She is alert and oriented to person, place, and time. Psychiatric: Mood and Affect: Mood normal. Behavior: Behavior normal. No results for input(s): WBC , HGB , HCT , MCV , PLT in the last 72 hours. No results for input(s): NA , K , CL , CO2 , PHOS , BUN , CREATININE in the last 72 hours. Invalid input(s): CA No results for input(s): AST , ALT , BILITOT , ALKPHOS in the last 72 hours. Invalid input(s): ALB , BILIDIR No results for input(s): LIPASE , AMYLASE in the last 72 hours. No results for input(s): PROT , INR in the last 72 hours. No results for input(s): PTT in the last 72 hours. No results for input(s): OCCULTBLD in the last 72 hours. No results for input(s): AMMONIA in the last 72 hours. @MEDICATIONSWITHREFILLS@ Assessment/Plan: 49 y.o. yo female here for NPV with Kate Daniel CNP to discuss rectal bleeding, heart burn, dysphagia and elevated P ANCA Rectal bleeding Constipation Elevated P ANCA - Reports bright red rectal bleeding with each stool as well as constipation with straining and difficult defecation - She has tried OTC stool softeners and stimulant laxatives without much improvement - Last colonoscopy in 2018 with ascending colon polyp and random biopsies negative for microscopic colitis - Patient also with elevated P ANCA and ESR- concerning for possible IBD, ulcerative colitis - Will scheduled diagnostic colonoscopy for further evaluation of rectal bleeding and constipation - discussed with patient who is agreeable to proceed - Recommend starting Linzess 145 mcg daily prior to procedure for further treatment of chronic constipation - Continue to try to drink plenty of non-caffeinated fluids Heart burn/GERD Dysphagia - Reports indigestion and dysphagia described as food moving slowly down her esophagus - Last EGD in 2016 with normal EGD with gastric bypass anatomy - Patient also with numbness and tingling in her hands and feet - Will schedule EGD to be completed at the same time as colonoscopy for further evaluation of dysphagia, indigestion. Also to r/o chronic gastritis which could be contributing to B12 and folate deficiency- discussed with patient who is agreeable - Continue Pepcid for now- may need to adjust medication pending endoscopy findings ENDOSCOPIC RISK BENEFIT DISCUSSION: I described the procedure in detail with the patient. I discussed the risks and benefits, including but not limited to: bleeding, perforation, infection, anesthesia complications, and even . I gave clear directions and instructions to the endoscopy lab. Patient will be NPO after midnight and will have a person physically present at time of pick-up to drivepatient home. Patient verbalized understanding and agrees to proceed with procedure as planned. Gave callback number to [facility] in case patient has questions between now and the procedure. RTO pending endoscopy findings, response to Francoise DANIEL CNP 08/23/2024 documented in this encounter Plan of Treatment Upcoming Encounters Date Type Department Care Team (Late st Contact Info) Description 12/17/2024 8:31 AM EDT Hospital Encounter [facility] ENDOSCOPY [address] [place] [id number] Carlos Hernandez MD [address] [place] [phone] 12/17/2024 8:31 AM EDT - 12/17/2024 9:31 AM EDT Surgery [facility] ENDOSCOPY [address] [place] [id number] Carlos Hernandez MD [address] [place] [phone] EGD Scheduled Procedures Name Priority Associated Diagnoses Date/Ti me EGD Gastroesophageal reflux disease, unspecified whether esophagitis present Colon cancer screening Dysphagia, unspecified type 12/17/2024 8:31 AM EDT COLONOSCOPY W/ OR W/O BIOPSY Gastroesophageal reflux disease, unspecified whether esophagitis present Colon cancer screening Dysphagia, unspecified type 12/17/2024 8:31 AM EDT documented as of this encounter Visit Diagnoses Diagnosis Constipation, unspecified constipation type- Primary Rectal bleeding Hemorrhage of rectum and anus Dysphagia, unspecified type Indigestion Dyspepsia and other specified disorders of function of stomach Gastroesophageal reflux disease, unspecified whether esophagitis present Colon cancer screening Special screening for malignant neoplasms, colon Dysphagia, unspecified type documented in this encounter Care Teams Parboiler Relationship Specialty Start Date End Date Toby Riley MD [address] [place] [address] PCP - General Family Medicine 12/17/11 documented as of this encounter
[2024-10-27 21:38] LABS: Alanine Aminotransferase 19 U/L (12-78); Albumin Level 4.2 g/dl (3.5-5.0); Albumin/Globulin Ratio 1.4 (1.1-1.8); Alkaline Phosphatase 118 U/L (38-126); Anion Gap 15.4 mEq/L (5-15); Aspartate Amino Transferase 20 U/L (14-36); Bilirubin,Total 0.5 mg/dl (0.2-1.3); Blood Urea Nitrogen 14 mg/dl (7-17); Calcium 9.9 mg/dl (8.4-10.2); Carbon Dioxide 26 mmol/L (22.0-30.0); Chloride 104 mmol/L (98-107); Creatinine,Serum 1.20 mg/dl (0.52-1.04); Estimated Glomerular Filt Rate 48 ml/min (>60); GFR (African American) 58 ML/MIN (>60); Globulin 2.9 g/dL (1.3-3.2); Glucose 73 mg/dl (74-100); Potassium 4.4 mmoL/L (3.5-5.1); Sodium 141 mmol/L (136-145); Total Protein,Serum 7.1 g/dl (6.3-8.2)
[2024-10-27 21:52] LABS: Free T4 (Free Thyroxine) 1.16 ng/dl (0.78-2.19)
[2024-10-27 22:04] LABS: Thyroid Stimulating Hormone < 0.02 uIU/mL (0.465-4.68)
[2024-10-27 23:08] LABS: Hepatitis C Ab Qual. W/ RFX NEGATIVE (Negative)
--- OUTSIDE RECORDS SUMMARY | 2024-10-28 12:57 | XMS_ITS | Clinical Summary ---
Author Organization [facility] Address [address] [place] [id number] Care Team Providers Care Hvac Services Professional Name Role Phone Toby Riley MD Primary Care Provider [phone] Source Comments This information has been disclosed to you from confidential records protectedfrom disclosure by state law. You shall make no further disclosure of thisinformation without the specific, written, and informed release of theindividual to whom it pertains, or as otherwise permitted by law. A generalauthorization for the release of medical or other information is not sufficientfor the purposes of therelease of HIV test results or diagnoses. [id number] Allergies Active Allergy Reactions Criticality Noted Date Comments Morphine Itching Low 05/14/2016 Patient gets hot. Does not like to take it Medications BIOTIN ORAL Take 5,000 mcg by mouth daily. Active multivitamin (THERAGRAN) tablet Take 1 tablet by mouth daily. Active DULoxetine (CYMBALTA) 60 MG capsule Take 1 capsule (60 mg total) by mouth daily. 10/16/19 16 Active co-enzyme Q-10 30 mg capsuleIndicat ions:not sure of dose Take 1 capsule (30 mg total) by mouth 3 times a day. Indications: not sure of dose Active riboflavin, vitamin B2, 100 mg Tab Take 4 tablets (400 mg total) by mouth daily. Active ARIPiprazole (ABILIFY) 10 MG tablet Take 1 tablet (10 mg total) by mouth daily. Active levothyroxine (SYNTHROID) 75 MCG tablet Take 1 tablet (75 mcg total) by mouth every morning before breakfast. Active topiramate (TOPAMAX) 100 MG tablet TAKE 1 & 1/2 (ONE & ONE-HALF) TABLETS BY MOUTH TWICE DAILY 270 tablet 3 08/12/19 25 Active famotidine (PEPCID) 20 MG tablet Take 1 tablet (20 mg total) by mouth 2 times a day. Active polyethylene glycol (GOLYTELY) 236-22.74-6.74 -5.86 gram solutionIndica tions:Gastroes ophageal reflux disease, unspecified whether esophagitis present,Colon cancer screening,Dysp hagia, unspecified type,Encounter for screening colonoscopy PATIENT IS TO FOLLOW THE COLO PREP INSTRUCTIONS according to the instructions outlined in your prep letter from . 4000 mL 08/28/19 25 Active linaCLOtide (LINZESS) 145 mcg Cap Take 1 capsule (145 mcg total) by mouth daily. 30 capsule 2 09/11/19 25 025 Active baclofen (LIORESAL) 20 MG tablet TAKE 1 TABLET BY MOUTH THREE TIMES DAILY 270 tablet 1 10/05/19 25 Active ergocalciferol (ERGOCALCIFERO L) 1,250 mcg (50,000 unit) capsuleIndicat ions:Vitamin D deficiency,Mul tiple sclerosis (CMS-HCC) Take 1 capsule by mouth once a week 12 capsule 1 10/05/19 25 Active baclofen (LIORESAL) 20 MG tablet TAKE 1 TABLET BY MOUTH THREE TIMES DAILY 270 tablet 1 04/05/20 24 025 Discontinued ergocalciferol (ERGOCALCIFERO L) 1,250 mcg (50,000 unit) capsuleIndicat ions:Vitamin D deficiency,Mul tiple sclerosis (CMS-HCC) Take 1 capsule by mouth once a week 12 capsule 07/13/19 25 025 Discontinued Active Problems Problem Noted Date Diagnosed Date Constipation 08/22/2020 Poor iron absorption 01/25/2020 Insomnia 03/31/2019 Gastroesophageal reflux disease 03/03/2019 Overview (11/18/2022): Added automatically from request for surgery [id number] Hematochezia 03/03/2019 Overview (11/18/2022): Added automatically from request for surgery [id number] Melena 03/03/2019 Overview (11/18/2022): Added automatically from request for surgery [id number] Iron deficiency anemia 03/02/2019 Frequent UTI 10/06/2018 Nocturia 10/06/2018 Urinary incontinence 10/06/2018 Paresthesia 12/13/2016 Urinary urgency 12/13/2016 Left leg weakness 12/13/2016 Imbalance 12/13/2016 Spasm 10/15/2016 Flexural atopic dermatitis 04/23/2016 Acne vulgaris 04/23/2016 Urge incontinence of urine 12/27/2015 Family history of hemophilia A 11/20/2015 Diplopia 10/11/2015 Dysuria 06/21/2015 Abnormal TSH 06/21/2015 Urinary hesitancy 06/21/2015 Muscle weakness 04/17/2015 Dysphagia 04/17/2015 Fatigue 04/17/2015 H/O gastric bypass 03/06/2015 Impaired gait 01/25/2015 Double vision with both eyes open 01/25/2015 Essential hypertension 01/10/2015 Obesity 06/28/2014 Neuropathic pain 06/28/2014 Cognitive impairment 11/20/2013 Vitamin D deficiency 06/11/2013 Binocular vision disorder with diplopia 06/09/19 14 Papilledema 06/09/2013 Abnormal MRI of head 12/14/2012 Depression 12/14/2012 Migraine without aura, intractable 12/14/2012 Hypothyroidism 05/30/2010 Obesity, morbid, BMI 50 or higher Rheumatic fever Hypertension Anxiety History of kidney infection Multiple joint pain SOBOE (shortness of breath on exertion) Hay fever Ankle swelling Resolved Problems Problem Noted Date Diagnosed Date Resolved Date Multiple sclerosis 04/17/2015 4 Encounter for long-term (cur rent) use of high-risk medication 04/17/2015 05/19/2024 Multiple sclerosis 5 Multiple sclerosis 4 Encounters Date Type Department Care Team Description 10/28/2024 Orders Only [facility] [address] [place] [address] Carolyn Donnelly, CYBER ANALYST Encounter for screening mammogram for malignant neoplasm of breast (Primary Dx) 10/02/2024 Refill [facility] Neurology at [facility] [address] [facility] [address] [place] [phone] Sara Hinton CNP Vitamin D deficiency; Multiple sclerosis ([facility]) 09/27/2024 Telephone [facility] Gastroenterology at [facility] [address] [facility] [address] [place] [phone] Kate Boswell CNP rs colonoscopy/egd 09/10/2024 Orders Only [facility] [address] [place] [address] Kate Boswell CNP 09/10/2024 Telephone [facility] Gastroenterology at [facility] [address] [facility] [address] [place] [phone] Trish Moore, RN Medical Management (Plan of Care Inquiry/Question ) 09/10/2024 Pharmacy Services [facility] [address] [place] [phone] Katelynn Otero, RXT 09/01/2024 Rx Prior Authorization [facility] Gastroenterology at [facility] [address] [facility] [address] [place] [address] Trish Moore, HIMANSHU 09/01/2024 Telephone [facility] Gastroenterology at [facility] [address] [facility] [address] [place] [phone] Kate Boswell CNP Prior Authorization (Medication/) 08/27/2024 Telephone [facility] Gastroenterology at [facility] [address] [facility] [address] [place] [phone] Kate Boswell CNP Prescription Issue (RX Clarification Request/) 08/26/2024 1:30 PM EDT Office Visit [facility] Gastroenterology at [facility] [address] [facility] [address] [place] [phone] Kate Boswell CNP Constipation, unspecified constipation type (Primary Dx); Rectal bleeding; Dysphagia, unspecified type; Indigestion 08/26/2024 Orders Only [facility] Gastroenterology at [facility] [address] [facility] [address] [place] [phone] Carlos Hernandez MD Encounter for screening colonoscopy (Primary Dx); Gastroesophageal reflux disease, unspecified whether esophagitis present; Colon cancer screening; Dysphagia, unspecified type 08/10/2024 Refill [facility] Neurology at [facility] [address] [facility] [address] [place] [phone] Isai Smyth MD from Last 3 Months Family History Medical History Relation Comments Migraines Daughter Coronary artery disease Father Depression Father Diabetes Father Heart disease Father Hyperlipidemia Father Hypertension Father Migraines Father Obesity Father Sleep apnea Father Osteoporosis Mother Cancer Paternal Grandfather GASTRO CANC ER, colon Cancer Sister thyroid Cholelithiasis Sister Migraines Sister Obesity Sister Melanoma Neg Hx Relation Status Comments Daughter Father Alive Mother Alive Paternal Grandfather Sister Social History Tobacco Use Types Packs/Day Years [...] Orientation Straight 06/05/2021 1: 21 AM EST Last Filed Vital Signs Vital Sign Reading Time Taken Comments Blood Pressure 103/70 08/26/2024 1:12 PM EDT Pulse 83 08/26/2024 1:12 PM EDT Temperature 36.6 C (97.9 F) 02/14/2020 8:09 AM EDT Respiratory Rate 16 05/03/2024 8:36 AM EST Oxygen Saturation 99% 08/26/2024 1:12 PM EDT Inhaled Oxygen Concentration 99% 08/26/2024 1 :12 PM EDT Weight 98.4 kg (217 lb) 08/26/2024 1:12 PM EDT Height 162.6 cm (5' 4 ) 08/26/2024 1:12 PM EDT Body Mass Index 37.25 08/26/2024 1:12 PM EDT Plan of Treatment Upcoming Encounters Date Type Department Care Team (Late st Contact Info) Description 12/17/2024 8:31 AM EDT Hospital Encounter [facility] ENDOSCOPY [address] [place] [address] Carlos Hernandez MD [address] [place] [phone] 12/17/2024 8:31 AM EDT - 12/17/2024 9:31 AM EDT Surgery [facility] ENDOSCOPY [address] [place] [address] Carlos Hernandez MD [address] [place] [phone] EGD Scheduled Procedures Name Priority Associated Diagnoses Date/Ti me EGD Gastroesophageal reflux disease, unspecified whether esophagitis present Colon cancer screening Dysphagia, unspecified type 12/17/2024 8:31 AM EDT COLONOSCOPY W/ OR W/O BIOPSY Gastroesophageal reflux disease, unspecified whether esophagitis present Colon cancer screening Dysphagia, unspecified type 12/17/2024 8:31 AM EDT Health Maintenance Due Date Last Done Comments Abnormal Colonoscopy Follow Up 1977 Depression Monitoring (PHQ-9) 1977 Eye Exam 1977 Hepatitis C Screening (MyChart) 1977 HIV Screening 1995 Immunization: DTaP/Tdap/Td (1 - Tdap) 1996 Immunization: Hepatitis B (1 of 3 - 19+ 3-dose series) 1996 Mammogram (gloStreamhart) 2017 Cervical Cancer Screening/Pap Smear (MyChart) 10/05/2017 10/05/2014 Cologuard (FIT-DNA) 2022 Colonoscopy 2022 Colorectal Cancer Screening (MyChart) 2022 Stool Testing (gFOBT) 2022 Thyroid Function/TSH (gloStreamhart) 05/22/2023 05/22/2022, 06/28/2021, 10/06/2018, Additional history exists Immunization: COVID-19 ( season) 2023 Renal Function/GFR 12/14/2024 12/15/2023, 0 05/23/2023, 05/22/2022, Additional history exists Immunization: Influenza (gloStreamhart) (#1) 12/20/2024 Diabetes Screening 05/03/2025 05/03/2024, 05/22/2022 Lipid Panel 05/03/2029 05/03/2024 Immunization: Pneumococcal Aged Out N o longer eligible based on patient's age to complete this topic Procedures Procedure Name Priority Date/Time Associated Diagnosis Comments HEMOGLOBIN A1C Routine 05/03/2024 9:14 AM EST Chest pain, unspecified type LIPID PANEL Routine 05/03/2024 9:14 AM EST Chest pain, unspecified type COMPREHENSIVE METABOLIC PANEL, SERUM Routine 12/15/2023 12:03 PM EDT Encounter for long-term current use of high risk medication THYROID FUNCTION CASCADE Routine 05/22/2022 11:34 AM EST Abnormal TSH CYTOLOGY - PAP TEST, ROUTINE SCRN Routine 10/05/2014 12:00 AM EDT Well woman exam with routine gynecological exam from Last 3 Months or Most Recently Relevant to Health Maintenance Results * Hemoglobin A1c (05/03/2024 9:14 AM EST) Hemoglobin A1C 4.7 4.0 - 5.6 % 05/03/2024 3:13 PM EST [facility] Comment: Hemoglobin A1c Interpretation Guidelines: Normal: <5.7% Prediabetes: 5.7-6.4% Diabetes: >6.4% Diagnosis requires two independent tests unless clinical diagnosis is clear. Some clinical conditions, particularly anemias and hemoglobinopathies, may interfere with the diagnostic accuracy of hemoglobin A1c. The recommended goal for diabetic glycemic control (Hemoglobin A1c <7.0%) should be individualized based on duration of diabetes, age/life expectancy, comorbid conditions, known CVD or advanced microvascular complications, hypoglycemia unawareness, and other individual patient considerations. Whole Blood 05/03/2024 9:14 AM EST 05/03/2024 2:26 PM EST us Ron Randolph MD LAB BLOOD ORDERABLES Final Resu lt [facility] [address] [place] [address], [facility] * (ABNORMAL) Lipid Profile (05/03/2024 9:14 AM EST) Non-HDL Cholesterol, Calculated 251(H) 0 - 129 mg/dL 05/03/2024 2:44 PM EST [facility] Comment: Desirable: < 130 mg/dL Above Desirable: 130-159 mg/dL Borderline High: 160-189 mg/dL High: 190-219 mg/dL Very High: > 219 mg/dL Cholesterol, Total 303(H) 0 - 200 mg/dL 05/03/2024 2:44 PM EST [facility] Triglycerides 309(H) 10 - 149 mg/dL 05/03/2024 2:44 PM EST [facility] HDL 52(L) 60 - 92 mg/dL 05/03/2024 2:44 PM EST [facility] Comment: LIPID PROFILE INTERPRETATION CHOLESTEROL,TOTAL(mg/dL) DESIRABLE: < 200 BORDERLINE HIGH RISK: 200 - 239 HIGH RISK(UNDESIRABLE): =/> 240 LDL CHOLESTEROL(mg/dL) OPTIMAL: < 100 NEAR HIGH OPTIMAL: 100 - 129 BORDERLINE HIGH RISK: 130 - 159 HIGH RISK: 160 - 189 VERY HIGH RISK: =/> 190 HDL CHOLESTEROL(mg/dL) HIGH RISK(UNDESIRABLE): < 40 BORDERLINE: 40 - 59 LOW RISK (DESIRABLE): => 60 TRIGLYCERIDES (mg/dL) NORMAL(DESIRABLE): < 150 BORDERLINE HIGH RISK: 150 - 199 HIGH RISK: 200 - 499 VERY HIGH RISK: =/> 500 Based on the guidlines of the National Cholesterol Education Program (NCEP). Assumes sample obtained after a 9- to 12- hour fast. LDL Cholesterol 189 mg/dL 2:44 PM EST [facility] Plasma 05/03/2024 9:14 AM EST 05/03/2024 2:16 PM EST Narrative [facility] - 05/03/2024 2:44 PM EST Must the patient be fasting for this test?->Yes us Ron Randolph MD LAB BLOOD ORDERABLES Final Resu lt [facility] [address] * Comprehensive Metabolic Panel, Serum (12/15/2023 12:03 PM EDT) Sodium 140 133 - 146 mmol/L 12/15/2023 9:49 PM EDT [facility] Potassium 4.3 3.5 - 5.3 mmol/L 12/15/2023 9:49 PM EDT [facility] Chloride 101 98 - 110 mmol/L 12/15/2023 9:49 PM EDT [facility] CO2 29 21 - 33 mmol/L 12/15/2023 9:49 PM EDT [facility] Anion Gap 10 3 - 16 mmol/L 12/15/2023 9:49 PM EDT [facility] BUN 25 7 - 25 mg/dL 12/15/2023 9:49 PM EDT [facility] Creatinine 1.27 0.60 - 1.30 mg/dL 12/15/2023 9:49 PM EDT [facility] Glucose 76 70 - 100 mg/dL 12/15/2023 9:49 PM EDT [facility] Calcium 9.9 8.6 - 10.3 mg/dL 12/15/2023 9:49 PM EDT [facility] Total Bilirubin 0.3 0.0 - 1.5 mg/dL 12/15/2023 9:49 PM EDT [facility] AST (SGOT) 16 13 - 39 U/L 12/15/2023 9:49 PM EDT [facility] ALT 25 7 - 52 U/L 12/15/2023 9:49 PM EDT [facility] Alkaline Phosphatase 74 36 - 125 U/L 12/15/2023 9:49 PM EDT [facility] Total Protein 6.5 6.4 - 8.9 g/dL 12/15/2023 9:49 PM EDT [facility] Albumin 3.8 3.5 - 5.7 g/dL 12/15/2023 9:49 PM EDT [facility] Osmolality, Calculated 293 278 - 305 mOsm/kg 12/15/2023 9:49 PM EDT [facility] EGFR 53 12/15/2023 9:49 PM EDT [facility] Comment:As of 2021, the estimated GFR is calculated using the 2020 Chronic Kidney Disease Epidemiology Collaboration (CKD-EPI) equation. In line with the NKF-ASN Task Force Recommendations, this equation does not include a coefficient for race. A single eGFR value is calculated for each patient. The reference interval is >60 mL/min/1.73m2. eGFR values greater than 90 will be reported as >90mL/min/1.73m2. Reference: Eric C, Gerald M, Angel DC, Cintia ND, Becca [place], Wallace [place], et al. A Unifying Approach for GFR Estimation: Recommendations of the NKF-ASN Task Force on Reassessing the inclusion of Race in Diagnosing Kidney Disease. Am J Kidney Dis. 2020. Serum 12/15/2023 12:0 3 PM EDT 12/15/2023 9:18 PM EDT us Sara Ariaamp [facility] BLOOD ORDERABLES Final Result [facility] [address] * Thyroid Function [place] (05/22/2022 11:34 AM EST) TSH 3.85 0.45 - 4.12 uIU/mL 05/22/2022 3:37 PM EST [facility] Serum 05/22/2022 11:3 4 AM EST 05/22/2022 2:46 PM EST Isai Smyth MD LAB BLOOD ORDERABLES Final Resul t [facility] [address] [facility] * Cytology - PAP Test, Routine Scrn (10/05/2014 12:00 AM EDT) Papanicolaou smear specimen (specimen) 10/05/2014 10/06/2014 Narrative [facility] - 10/05/2014 12:00 AM EDT CASE: [id number] PATIENT: ANASTASIYA MATUTE Clinical History: Clinical History: LMP: Not given; Additional Tests: HPV Testing Specimen(s) Submitted: A. Pap Test (TP) Screen, HPV CPT Code(s): 34812 X 1; 28225 X 1 Additional Information: annual exam, missed period this month, UPT Neg, well woman exam with routine bunch breaker. exam CYTOLOGIC DIAGNOSIS: Specimen Adequacy: Satisfactory for evaluation - endocervical component absent partially obscuring inflammation INTERPRETATION: NEGATIVE FOR INTRAEPITHELIAL LESION OR MALIGNANCY HUMAN PAPILLOMAVIRUS DNA, HIGH RISK HPV HIGH RISK: Negative HPV GENOTYPE 16: Negative HPV GENOTYPE 18: Negative HPV HIGH RISK OTHER: Negative HPV Comments: Test methodology for the Human Papillomavirus High Risk test is a FDA approved DNA Amplification Assay. [place] [address] HPV Genotypes 16, 18, 31, 33, 34, 51, 52, 56, 58, 59, 66, and 68 were not detected or below the pre-set threshold. PROFESSIONAL PERFORMING LOCATION: [address] [place] [address] PRIOR PAP SMEAR DIAGNOSES: No cases found Interpretation performed by ARMOND VERA(ASCP) Openstack Developer Electronically signed 10/11/2014 08:03:04 AM us Lucas OROPEZAM PATHOLOGY/CYTOLOGY O RDERABLES Final Result [facility] [address] [facility] [place] [address] from Last 3 Months or Most Recently Relevant to Health Maintenance Insurance BLUE ACCESS [facility] [place] [id number] Care Teams Hvac Services Professional Relationship Specialty Start Date End Date Toby Riley MD [address] [place] [address] PCP - General Family Medicine 12/17/11
--- OUTSIDE RECORDS SUMMARY | 2024-10-28 12:57 | XMS_ITS | Clinical Summary ---
Author Organization [facility] Address [address] [place], [place] [address] Phone Care Team Providers Care Steel Rod Buster Name Role Phone Jessica Kim MD Unavailable [phone] Carolyn Donnelly APRN Primary Care Provider Allergies Active Allergy Reactions Criticality Noted Date Comments Morphine Itching 09/28/2013 Medications CYANOCOBALAMIN , VITAMIN B-12, (B-12 DOTS ORAL) Take by mouth. 1 po qd Active Biotin 2,500 mcg Cap Take by mouth. 1 pill Bid Active levothyroxine (SYNTHROID) 75 mcg tabletIndicati ons:hypothyroi dism Take 100 mcg by mouth daily. Indications: a condition with low thyroid hormone levels Active topiramate (TOPAMAX) 100 mg Oral Tablet Take 100 mg by mouth 3 times daily. Active DULoxetine (CYMBALTA) 30 mg capsule Take 60 mg by mouth daily. Active ARIPiprazole (ABILIFY) 10 mg Oral Tablet Take 10 mg by mouth. Active Cholecalcifero l, Vitamin D3, 50,000 unit Oral Capsule 9 Active folic acid (FOLVITE) 1 mg Oral Tablet Take by mouth daily. 2 9 Active baclofen (LIORESAL) 10 mg Oral Tablet TAKE 1 & 1 2 (ONE & ONE HALF) TABLETS BY MOUTH THREE TIMES DAILY 1 9 Active cetirizine (ZYRTEC) 10 mg Oral Tablet Take 10 mg by mouth daily. 2 Active fUROsemide (LASIX) 20 mg Oral Tablet Take 20 mg by mouth daily. Active metoprolol (LOPRESSOR) 25 mg Oral Tablet Take 12.5 mg by mouth. 2 Active acetaminophen 325 mg Oral Tab Take 2 Tablets by mouth every 4 hours as needed for Pain or Fever. 2 Active dextroamphetam ine-amphetamin e (ADDERALL) 20 mg Oral Tablet Take 20 mg by mouth 2 times daily. 5 Active ergocalciferol (DRISDOL) 1,250 mcg (50,000 unit) Oral Capsule Take 50,000 Units by mouth every 7 days. 4 Active lisinopriL (PRINIVIL;ZEST RIL) 2.5 mg Oral Tablet Take 2.5 mg by mouth daily. 5 Active ZEPBOUND 7.5 mg/0.5 mL SubQ Pen Injector inject 1 syringe subcutaneously once a week 5 Active Active Problems Problem Noted Date Diagnosed Date Calcium oxalate crystals in urine 07/15/2024 Stage 3b chronic kidney disease 06/17/2024 Microalbuminuria 06/17/2024 Essential hypertension 06/17/2024 Altered mental status 10/22/2021 Melena 03/03/2019 Overview (03/03/2019): Added automatically from request for surgery [id number] Hematochezia 03/03/2019 Overview (03/03/2019): Added automatically from request for surgery [id number] Gastroesophageal reflux disease 03/03/2019 Overview (03/03/2019): Added automatically from request for surgery [id number] Multiple sclerosis 03/02/2019 Iron deficiency anemia 03/02/2019 Depression 07/25/2010 Hypothyroidism 05/30/2010 Surgical History Surgery Date Site/Laterality Comments CHOLECYSTECTOMY BREAST REDUCTION SURGERY 04/21/2000 - 04/20/2001 HERNIA REPAIR 04/21/2007 - 04/20/2008 DILATION AND CURETTAGE OF UTERUS 04/21/2008 - 04/20/2009 x2 GASTRIC BYPASS SURGERY 04/21/2005 - 04/20/2006 [place] COLONOSCOPY 04/21/2004 - 04/20/2005 PDW UPPER GASTROINTESTINAL ENDOSCOPY 04/20/2019 N/A Surgeon: Dread Bui MD PHD; Location: [facility] ENDOSCOPY; Service: Endoscopy FL GUIDED LUMBAR PUNCTURE DIAGNOSTIC 2024 FL GUIDED LUMBAR PUNCTURE DIAGNOSTIC 2024 Medical History Medical History Date Comments Depression Thyroid disease Allergy GERD (gastroesophageal reflux disease) Hypertension Migraine Seizure (HCC) Iron deficiency anemia 03/02/2019 MS (multiple sclerosis) ([facility]) 2014 CVA (cerebral vascular accident) (HCC) Didn't have thought this but ended up being MS Urinary tract infection Kidney stone Family History Medical History Relation Name Comments No Known Problems Brother Diabetes Father Heart Disease Father High Blood Pressure Father High Cholesterol Father Hypertension Father No Known Problems Maternal Grandfather No Known Problems Maternal Grandmother High Cholesterol Mother No Known Problems Other No Known Problems Paternal Grandfather No Known Problems Paternal Grandmother Other Sister Allergies Neg Hx Bleeding Prob Neg Hx Cancer Neg Hx Hearing Loss Neg Hx Kidney Disease Neg Hx Migraines Neg Hx Thyroid Disease Neg Hx Relation Name Status Comments Brother Father Alive Maternal Grandfather Maternal Grandmother Mother Alive Other Paternal Grandfather Paternal Grandmother Sister Social History Tobacco Use Types Packs/Day Years Used Date Smoking Tobacco: Former Cigarettes 0.3 9 1 05/02/2000 - 03/02/2010 Smokeless Tobacco: Never Tobacco Cessation:Counseling Given: Yes Alcohol Use Standard Drinks/Week Comments No 0 (1 standard drink = 0.6 oz pur e alcohol) Overall Financial Resource Strain (CARDIA) Answe r Date Recorded How hard is it for you to pa y for the very basics like food, housing, medical care, and heating? Not hard at all 10/23/2021 Hunger Vital Sign Answer Date Recorded Within the past 12 months, y ou worried that your food would run out before you got the money to buy more. Never true 10/24/19 22 Within the past 12 months, t he food you bought just didn't last and you didn't have money to get more. Never true 10/23/2021 PRAPARE - Transportation Answer Date Re corded In the past 12 months, has l ack of transportation kept you from medical appointments or from getting medications? No 08/2021 In the past 12 months, has l ack of transportation kept you from meetings, work, or from getting things needed for daily living? No 10/23/2021 Sexually Active Control Partners Comments Yes Surgical Male vasectomy Comments No Sex and Gender Information Value Date Recorded Sex Assigned at Not on file Legal Sex Female 10:41 AM EDT Gender Identity Not on file Sexual Orientation Not on file Obstetrics History Para Term AB IAB SAB Ectopic Multiple Livin g Live Births 5 3 Date Outcome GA Total Labor Labor/2nd/3rd Weight Sex Type Anes PTL Atiya A1 A5 Name Clin Last Filed Vital Signs Vital Sign Reading Time Taken Comments Blood Pressure 102/72 07/15/2024 4:04 PM EDT Pulse 90 07/15/2024 4:04 PM EDT Temperature 36.7 C (98 F) 03/27/2022 4:33 PM EST Respiratory Rate 18 01/17/2022 1:13 PM EDT Oxygen Saturation 98% 01/17/2022 1:13 PM EDT Inhaled Oxygen Concentration - - Weight 98 kg (216 lb) 07/15/2024 4:04 PM EDT Height 162.6 cm (5' 4 ) 07/15/2024 4:04 PM EDT Body Mass Index 37.08 07/15/2024 4:04 PM EDT Plan of Treatment Upcoming Encounters Date Type Department Care Team (Late st Contact Info) Description 12/09/2024 4:30 PM EDT Office Visit [facility] [place] [address] [place] [address] Bran Blackburn MD [address] [place] [address] Health Maintenance Due Date Last Done Comments Annual Wellness Exam 1980 DTaP/TDaP/Td (1 - Tdap) 1996 Hepatitis B Vaccine (1 of 3 - 19+ 3-dose series) 1996 HPV/Pap Cotest 2007 Cervical Cancer Screening 2013 Pap Smear 2013 2010 Breast Cancer Screening 2017 03/24/2010 Cologuard 2022 FIT 2022 Sigmoidoscopy 2022 Virtual Colonography 2022 COVID-19 Vaccine (1 - 2023-2 5 season) 2023 Colon Cancer Screening 04/20/2024 Colonoscopy 04/20/2024 04/20/2019 Influenza Vaccine (#1) 2024 Meningococcal B Vaccine Aged Out No l onger eligible based on patient's age to complete this topic Pneumococcal Vaccine 0-49 Aged Out No longer eligible based on patient's age to complete this topic Procedures Procedure Name Priority Date/Time Associated Diagnosis Comments DIABETES EYE EXAM Routine 09/23/2024 4:31 PM EDT GMED EGD-COLONOSCOPY Routine 04/20/2019 9:00 AM EST SHEET SEWER CYTOLOGY REPORT Routine 2010 8 :44 AM EST MM MAMMO DIGITAL DIAGNOSTIC W CAD BILAT Routine 03/24/2010 12:53 PM EST Breast lump from Last 3 Months or Most Recently Relevant to Health Maintenance Results * HM DIABETES EYE EXAM (09/23/2024 4:31 PM EDT) Left Diabetic Retinopathy Not Present Not Present Present/Not Present SEP OFFICE Right Diabetic Retinopathy Not Present Not Present Present/Not Present SEP OFFICE Impressions SEP OFFICE - 09/23/2024 4:31 PM EDT Kay Marshall OD Next visit: 11/05/2024. us Historical Provider HEALTH MAINTENANCE Edited Re sult - Final SEP OFFICE * GMED EGD-COLONOSCOPY (04/20/2019 9:00 AM EST) 04/20/2019 9:00 AM EST Impressions [facility] - 04/20/2019 10:13 AM EST Plan: Follow up pathology results. If you do not receive pathology results within 2 weeks, please call our office for findings and final recommendations. Colonoscopy in 5 or 10 years depending on pathology results. Hematochezia likely due to hemorrhoids. Etiology of melena not clear based on today's scopes. Recommend outpatient video capsule endoscopy study. Continue to monitor Hgb and stools. This section is an excerpt of the full report. us Dread Bui MD PHD GI PROCEDURE ORDERABLES Fin al Result Performing Organization Address [facility] Co de Phone Number [facility] [address] [place] [id number] * SHEET SEWER CYTOLOGY REPORT (2010 8:44 AM EST) Liquor Rectifier Cytology Report PATIENT NAME:ANASTASIYA MATUTE Liquor Rectifier Cytology Report Accession Number Collected Date/Time Received Date/Time [id number] 05/07/10 08:44 EST 05/08/10 08:44 EST GY Specimen Source Specimen Vag/Cerv/Endocx?: Vaginal/Cervical/E ndocervical Statement of Adequacy Satisfactory for Evaluation. Transformation Zone Present. Diagnosis NEGATIVE FOR INTRAEPITHELIAL LESION OR MALIGNANCY. Comment The Pap Smear is a screening test that aids in the detection of cervical cancer and cancer precursors. Both false positive and false negative results can occur. The test should be used at regular intervals, and positive results should be confirmed before definitive therapy. Processed using the [facility] automated cytology screening device (WooMe). Lead Mason Tender: DT 05/17/2010 Completed by: CHUY Peraza (Electronically signed by) 05/17/2010 [facility] 2010 8:44 AM EST us Remigio Hoskins MD PATHOLOGY ORDERABLES Final R esult Performing Organization Address [facility] Co de Phone Number [facility] [address] [place] [address] * MM MAMMO DIGITAL DIAGNOSTIC W CAD BILAT (03/24/2010 12:53 PM EST) Anatomical Region Laterality Modality Breast Bilateral Mammography 03/25/2010 9:36 AM EST Impressions 03/26/2010 10:17 AM EST : Incomplete-need additional imaging evaluation ([id number]) RECOMMENDATION: Ultrasound of both breasts. This ultrasound examination was performed on 03/24/10 and will be reported separately. Narrative 03/26/2010 10:17 AM EST Procedure:MM MAMMO DIGITAL DIAGNOSTIC W CAD BILAT MM MAMMO DIGITAL DIAG CAD BILAT Bilateral CC and MLO view(s) were taken. No prior studies available for comparison. BILATERAL DIAGNOSTIC MAMMOGRAM AND BILATERAL BREAST ULTRASOUND HISTORY: 34-year-old female who is status-post bilateral reduction surgery in 2000 presents with palpable abnormalities in the upper inner quadrants of both breasts. These areas were marked and bilateral mammography is performed without comparison. The breasts are fatty replaced. No masses, clustered microcalcifications or areas of unexplained distortion present. * The patient with a palpable abnormality, unexplained by breast imaging, should be managed on clinical basis by the attending physician. * Breast imaging has a false negative rate of 15%. * The patient was notified by mail of the results of this examination. The mammogram was reviewed by a Radiologist and CAD. Procedure Note Merlene Barron S - 03/26/2010 Procedure:MM MAMMO DIGITAL DIAGNOSTIC W CAD BILAT MM MAMMO DIGITAL DIAG CAD BILAT Bilateral CC and MLO view(s) were taken. No prior studies available for comparison. BILATERAL DIAGNOSTIC MAMMOGRAM AND BILATERAL BREAST ULTRASOUND HISTORY: 34-year-old female who is status-post bilateral reductionsurgery in 2000 presents with palpable abnormalities in the upper innerquadrants of both breasts. These areas were marked and bilateral mammography is performed without comparison. The breasts are fatty replaced. Nomasses, clustered microcalcifications or areas of unexplained distortionpresent. * The patient with a palpable abnormality, unexplained by breast imaging, should be managed on clinical basis by the attending physician. * Breast imaging has a false negative rate of 15%. * The patient was notified by mail of the results of this examination. The mammogram was reviewed by a Radiologist and CAD. IMPRESSION: Incomplete-need additional imaging evaluation ([id number]) RECOMMENDATION: Ultrasound of both breasts. This ultrasound examination was performedon 03/24/10 and will be reported separately. Tracey Delacruz MD IMG MAMMOGRAPHY ORDERABLES Fi nal Result from Last 3 Months or Most Recently Relevant to Health Maintenance Insurance ANTHEM PPO [place]THE[place] [id number] ANTH PPO Advance Directives For more information, please contact: [phone] * Full Code (Latest Code Status on File) Date Activated Date Inactivated Comments 10/22/2021 6:02 PM 10/24/2021 3:50 PM Care Teams Steel Rod Buster Relationship Specialty Start Date End Date Jessica Kim MD [address] [place] [phone] PCP - OBGYN 12/22/09 Carolyn Donnelly APRN [address] [facility] [address] [place] [phone] PCP - General Nurse Practitioner 07/15/24
--- OUTSIDE RECORDS SUMMARY | 2024-10-28 12:57 | XMS_ITS | Encounter Summary ---
Author Organization [facility] Address [address] [place] [address] Care Team Providers Care River Transportation Worker Name Role Phone Toby Riley MD Primary Care Provider [phone] Source Comments This information has been disclosed [...] release of HIV test results or diagnoses. [id number] Health Encounter Details Date Type Department Care Team (Late st Contact Info) Description 10/28/2024 Orders Only [facility] [address] [place] [phone] Carolyn Donnelly, SENIOR STORAGE ADMINISTRATOR [address] [place] [address] Encounter for screening mammogram for malignant neoplasm of breast (Primary Dx) Social History Tobacco Use Types Packs/Day Years Used Date Smoking Tobacco: Former Cigarettes 0.5 15 0 04/2008 - 04/2023 Smokeless Tobacco: Never Comments:1 PACK DAILY X'S 7 1/2 YRS [...] AM EST documented as of this encounter Plan of Treatment Upcoming Encounters Date Type Department Care Team (Late st Contact Info) Description 12/17/2024 8:31 AM EDT Hospital Encounter [facility] ENDOSCOPY [address] [place] [address] Carlos Hernandez MD [address] [place] [phone] 12/17/2024 8:31 AM EDT - 12/17/2024 9:31 AM EDT Surgery [facility] ENDOSCOPY [address] [place] [address] Carlos Hernandez MD [address] [place] [phone] EGD Scheduled Orders Name Type Priority Associated Diagnoses Orde r Schedule Mammography Screening Bilateral W Noah Imaging Routine Encounter for screening mammogram for malignant neoplasm of breast 1 Occurrences starting 10/28/2024 until 12/29/2025 Scheduled Procedures Name Priority Associated Diagnoses Date/Ti me EGD Gastroesophageal reflux disease, unspecified whether esophagitis present Colon cancer screening Dysphagia, unspecified type 12/17/2024 8:31 AM EDT COLONOSCOPY W/ OR W/O BIOPSY Gastroesophageal reflux disease, unspecified whether esophagitis present Colon cancer screening Dysphagia, unspecified type 12/17/2024 8:31 AM EDT documented as of this encounter Visit Diagnoses Diagnosis Encounter for screening mammogram for malignant neoplasm of breast- Primary Gastroesophageal reflux disease, unspecified whether esophagitis present Colon cancer screening Special screening for malignant neoplasms, colon Dysphagia, unspecified type documented in this encounter Care Teams River Transportation Worker Relationship Specialty Start Date End Date Toby Riley MD [address] [place] [address] PCP - General Family Medicine 12/17/11 documented as of this encounter
--- OUTSIDE RECORDS SUMMARY | 2024-10-28 12:57 | XMS_ITS | Encounter Summary ---
Author Organization [facility] Address [address] [place] [address] Care Team Providers Care Document Clerk Name Role Phone Toby Riley MD Primary Care Provider [phone] Source Comments This information has been disclosed [...] release of HIV test results or diagnoses. [id number] Health Encounter Details Date Type Department Care Team (Late st Contact Info) Description 01/11/2016 Orders Only [facility] Outreach Lab Test Referral [facility] [address] [place] [phone] Merlene Medeiros Pelvic pain in female (Primary Dx) Social History Tobacco Use Types Packs/Day Years Used Date Smoking Tobacco: Some Days Cigarettes Comments:4 cigarettes/day Alcohol Use Standard Drinks/Week Comments No 0 (1 standard drink = 0.6 oz pur e alcohol) Comments No Sex and Gender Information Value [...] EDT Hospital Encounter [facility] ENDOSCOPY [address] [place], [place] [address], [place] [address] Carlos Hernandez MD [address] [place] [address] 12/17/2024 8:31 AM EDT - 12/17/2024 9:31 AM EDT Surgery [facility] ENDOSCOPY [address] [place] [phone] Carlos Hernandez MD [address] [place] [address] EGD Scheduled Procedures Name Priority Associated Diagnoses Date/Ti me EGD Gastroesophageal reflux disease, unspecified whether esophagitis present Colon cancer screening Dysphagia, unspecified type 12/17/2024 8:31 AM EDT COLONOSCOPY W/ OR W/O BIOPSY Gastroesophageal reflux disease, unspecified whether esophagitis present Colon cancer screening Dysphagia, unspecified type 12/17/2024 8:31 AM EDT documented as of this encounter Results * Chlamydia / Gonorrhoeae DNA Swab (01/11/2016 6:52 PM EDT) Chlamydia Trachomatis DNA Swab Negative Negative 01/12/2016 11:04 AM EDT [facility] Neisseria gonorrhoeae DNA Swab Negative Negative 01/12/2016 11:04 AM EDT [facility] Comment: The presence of Chlamydia trachomatis and Neisseria gonorrhoeae DNA is detected by a U.S. Food and Drug Administration-approved amplification assay. Although performance of this test on male urethral swabs has not been approved by the FDA, the performance characterisitics for testing these samples have been determined by the [facility]. The laboratory is regulated under the Clinical Laboratory Improvement Act of 1988 (CLIA-88) as qualified to perform high-complexity laboratory testing. This test is used for clinical purposes; it should not be regarded as investigational or for research. Swab (specimen) GENITAL STRUCTURE / Unknown 01/11/2016 6:52 PM EDT 01/11/2016 6:53 PM EDT us Dread Baptiste MD BODY FLUIDS AND STOOLS ORDERABL ES Final Result [facility] [address] [place] [address], [facility] documented in this encounter Visit Diagnoses Diagnosis Pelvic pain in female- Primary Unspecified symptom associated with female genital organs Gastroesophageal reflux disease, unspecified whether esophagitis present Colon cancer screening Special screening for malignant neoplasms, colon Dysphagia, unspecified type documented in this encounter Care Teams Document Clerk Relationship Specialty Start Date End Date Toby Riley MD [address] [place] [address] PCP - General Family Medicine 12/17/11 documented as of this encounter
--- OUTSIDE RECORDS SUMMARY | 2024-10-28 12:57 | XMS_ITS | Encounter Summary ---
Author Organization [facility] Address [facility] [place] [place] [address] Care Team Providers Care Boat Loader Name Role Phone Toby Riley MD Primary Care Provider [phone] Source Comments This information has been disclosed [...] release of HIV test results or diagnoses. [id number] Health Encounter Details Date Type Department Care Team (Late st Contact Info) Description 08/15/2016 Orders Only [facility] Outreach Lab [address] [facility] [address] [place] [phone] Antonella Newman Neurogenic bladder (Primary Dx) Social History Tobacco Use Types Packs/Day Years Used Date Smoking Tobacco: Former Cigarettes Comments:1 cigarettes/week Alcohol Use Standard Drinks/Week Comments No 0 [...] Description 12/17/2024 8:31 AM EDT Hospital Encounter [facility] ENDOSCOPY [address] [place] [phone] Carlos Hernandez MD [address] [place] [address] 12/17/2024 8:31 AM EDT - 12/17/2024 9:31 AM EDT Surgery [facility] ENDOSCOPY [address] [place] [phone] Carlos Hernandez MD [address] [place] [address] EGD Scheduled Procedures Name Priority Associated Diagnoses Date/Ti me EGD Gastroesophageal reflux disease, unspecified whether esophagitis present Colon cancer screening Dysphagia, unspecified type 12/17/2024 8:31 AM EDT COLONOSCOPY W/ OR W/O BIOPSY Gastroesophageal reflux disease, unspecified whether esophagitis present Colon cancer screening Dysphagia, unspecified type 12/17/2024 8:31 AM EDT documented as of this encounter Results * Basic metabolic panel (08/15/2016 10:40 AM EDT) Sodium 139 133 - 146 mmol/L 08/15/2016 4:12 PM EDT [facility] Potassium 4.4 3.5 - 5.3 mmol/L 08/15/2016 4:12 PM EDT [facility] Chloride 108 98 - 110 mmol/L 08/15/2016 4:12 PM EDT [facility] CO2 23 21 - 33 mmol/L 08/15/2016 4:12 PM EDT [facility] Anion Gap 8 3 - 16 mmol/L 08/15/2016 4:12 PM EDT [facility] BUN 10 7 - 25 mg/dL 08/15/2016 4:12 PM EDT [facility] Creatinine 0.67 0.60 - 1.30 mg/dL 08/15/2016 4:12 PM EDT [facility] Glucose 82 70 - 100 mg/dL 08/15/2016 4:12 PM EDT [facility] Calcium 9.9 8.6 - 10.3 mg/dL 08/15/2016 4:12 PM EDT [facility] Osmolality, Calculated 286 278 - 305 mOsm/kg 08/15/2016 4:12 PM EDT [facility] eGFR AA CKD-EPI >90 See note. 7 4:12 PM EDT [facility] eGFR NONAA CKD-EPI >90 See note. 08/15/2016 4:12 PM EDT [facility] Plasma specimen (specimen) 08/15/2016 10:40 AM EDT 08/15/2016 3:51 PM EDT Narrative [facility] - 08/15/2016 4:12 PM EDT Must the patient be fasting for this test?->Yes As of 06/20/2015 the estimated GFR is calculated from serum creatinine using the Chronic Kidney Disease Epidemiology Collaboration (CKD-EPI) equation in patients 18 years and older. The reference range is >60 mL/min/1.73m2. eGFR values greater than 90 will be reported as >90mL/min/1.73m2. Reference: Tamy , Tonny LA, Nena CH, Gio YL, Jordan AF, 3rd, Sonia HI, et. al. A new equation to estimate glomerular filtration rate. Laurita Crimping Machine Operator Med. 2009:150(9):604-12 Alex Hanna MD, PhD LAB BLOOD ORDERABLES Final R esult [facility] [address] documented in this encounter Visit Diagnoses Diagnosis Neurogenic bladder- Primary Neurogenic bladder, NOS Gastroesophageal reflux disease, unspecified whether esophagitis present Colon cancer screening Special screening for malignant neoplasms, colon Dysphagia, unspecified type documented in this encounter Care Teams Boat Loader Relationship Specialty Start Date End Date Toby Riley MD [address] [place] [address] PCP - General Family Medicine 12/17/11 documented as of this encounter
--- OUTSIDE RECORDS SUMMARY | 2024-10-28 12:59 | XMS_ITS | Encounter Summary ---
Author Organization [facility] Address [address] [place] [address] Care Team Providers Care Asbestos Brake Lining Finisher Name Role Phone Toby Riley MD Primary Care Provider [phone] Source Comments This information has been disclosed [...] release of HIV test results or diagnoses. [id number] Reason for Visit * Reason Comments Medication Access Services Encounter Details Date Type Department Care Team (Late st Contact Info) Description 09/10/2024 Pharmacy Services [facility] [address] [place] [address] Katelynn Otero RXT Social History Tobacco Use Types Packs/Day Years [...] AM EST documented as of this encounter Progress Notes * MAKENZIE Sanchez - 09/10/2024 11:19 AM EDT MEDICATION ACCESS SERVICES 09/10/2024 Followed up with the patient concern screening for Linzess medication from [facility] patient informed me that she would not qualified for pap due to being over income. Patient is still needing the PA for Linzess I have referred the patient back to her prescribing doctor because of the confusion with the sig and quantity. I did give the patient my contact information for the future if needed. Katelynn Otero Patient Assistance Access Service [facility], Urology [facility] [phone] documented in this encounter Plan of Treatment Upcoming Encounters Date Type Department Care Team (Late st Contact Info) Description 12/17/2024 8:31 AM EDT Hospital Encounter [facility] ENDOSCOPY [address] [place] [phone] Carlos Hernandez MD [address] [place] [phone] 12/17/2024 8:31 AM EDT - 12/17/2024 9:31 AM EDT Surgery [facility] ENDOSCOPY [address] [place] [phone] Carlos Hernandez MD [address] [place] [phone] EGD Scheduled Procedures Name Priority Associated Diagnoses Date/Ti me EGD Gastroesophageal reflux disease, unspecified whether esophagitis present Colon cancer screening Dysphagia, unspecified type 12/17/2024 8:31 AM EDT COLONOSCOPY W/ OR W/O BIOPSY Gastroesophageal reflux disease, unspecified whether esophagitis present Colon cancer screening Dysphagia, unspecified type 12/17/2024 8:31 AM EDT documented as of this encounter Visit Diagnoses Not on filedocumented in this encounter Care Teams Asbestos Brake Lining Finisher Relationship Specialty Start Date End Date Toby Riley MD [address] [place] [address] PCP - General Family Medicine 12/17/11 documented as of this encounter
--- OUTSIDE RECORDS SUMMARY | 2024-10-28 12:59 | XMS_ITS | Encounter Summary ---
Author Organization [facility] Address [facility] [place] [address] Care Team Providers Care Oyster Tonger Name Role Phone Toby Riley MD Primary Care Provider [phone] Source Comments This information has been disclosed [...] release of HIV test results or diagnoses. [id number] Health Reason for Visit * Reason Comments Medical Management Plan of Care Inquiry /Question Encounter Details Date Type Department Care Team (Late st Contact Info) Description 09/10/2024 Telephone [facility] Gastroenterology at [place] [facility] [address] [place] [phone] Trish Moore RN Medical Management (Plan of Care Inquiry/Question ) Social History Tobacco Use Types Packs/Day Years [...] 05/03 Assistance needed for: Not on file 01/13/202 5 Yearly Questionnaire Answer Date Record ed [...] AM EST documented as of this encounter Miscellaneous Notes * Telephone Encounter - Trish Moore RN - 09/10/2024 1:07 PM EDT Spoke with patient and informed her that new prescription for Linzess had been sent to pharmacy by Kate Boswell CNP. * Telephone Encounter - Shameka Mccabe MA - 09/10/2024 12:09 PM EDT Pt called and needs a call back to discuss medication issue. Please return call to [phone]. documented in this encounter Plan of Treatment Upcoming Encounters Date Type Department Care Team (Late st Contact Info) Description 12/17/2024 8:31 AM EDT Hospital Encounter [facility] ENDOSCOPY [address] [place] [phone] Carlos Hernandez MD [address] [place] [phone] 12/17/2024 8:31 AM EDT - 12/17/2024 9:31 AM EDT Surgery [facility] ENDOSCOPY [address] [place] [phone] Carlos Hernandez MD [address] [place] [address] EGD Scheduled Procedures Name Priority [...] on filedocumented in this encounter Care Teams Oyster Tonger Relationship Specialty Start Date End Date Toby Riley MD [address] [place] [address] PCP - General Family Medicine 12/17/11 documented as of this encounter
--- OUTSIDE RECORDS SUMMARY | 2024-10-28 12:59 | XMS_ITS | Encounter Summary ---
Author Organization [facility] Address [address] [place] [address] Care Team Providers Care Degreasing Solution Mixer Name Role Phone Toby Riley MD Primary Care Provider [phone] Source Comments This information has been disclosed [...] release of HIV test results or diagnoses. [id number] Health Reason for Visit * Reason Comments rs colonoscopy/egd Encounter Details Date Type Department Care Team (Late st Contact Info) Description 09/27/2024 Telephone [facility] G[facility]enterology at [place] [facility] [address] [address] Kate Boswell, FOWL BLOOD TESTER [address] [place] [address] rs colonoscopy/egd Social History Tobacco Use Types Packs/Day Years [...] encounter Miscellaneous Notes * Telephone Encounter - Hayder Johnson MA - 09/27/2024 3:05 PM EDT Called pt to rs procedures due to provider schedule change on 11/19/[address] Hernandez @ [facility] Pt is scheduled on 12/17/24 @ 8:30AM Arrival time @ 7AM Pt verbalized she picked up GOLYTELY prep and understands instructions Updated letter Sent case message documented in this encounter Plan of Treatment Upcoming Encounters Date Type Department Care Team (Late st Contact Info) Description 12/17/2024 8:31 AM EDT Hospital Encounter [facility] ENDOSCOPY [address] [place] [phone] Carlos Hernandez MD [address] [place] [phone] 12/17/2024 8:31 AM EDT - 12/17/2024 9:31 AM EDT Surgery [facility] ENDOSCOPY [address] [place] [phone] Carlos Hernandez MD [address] [place] [phone] EGD Scheduled Procedures Name Priority Associated Diagnoses [...] on filedocumented in this encounter Care Teams Degreasing Solution Mixer Relationship Specialty Start Date End Date Toby Riley MD [address] [place] [address] PCP - General Family Medicine 12/17/11 documented as of this encounter
--- OUTSIDE RECORDS SUMMARY | 2024-10-28 12:59 | XMS_ITS | Encounter Summary ---
Author Organization [facility] Address [facility] [place] [address] Care Team Providers Care Admissions Assistant Name Role Phone Toby Riley MD Primary Care Provider [phone] Source Comments This information has been disclosed [...] release of HIV test results or diagnoses. [id number] Health Encounter Details Date Type Department Care Team (Late st Contact Info) Description 09/10/2024 Orders Only PROVIDER GI [address] [place] [phone] Kate Boswell, MILKING MACHINE TECHNICIAN [address] [place], [place] [phone] Social History Tobacco Use Types Packs/Day Years [...] Description 12/17/2024 8:31 AM EDT Hospital Encounter [facility] ENDOSCOPY [address] [place] [address] Carlos Hernandez MD [address] [place] [phone] 12/17/2024 8:31 AM EDT - 12/17/2024 9:31 AM EDT Surgery [facility] ENDOSCOPY [address] [place] [address] Carlos Hernandez MD [address] [place] [phone] EGD Scheduled Procedures Name Priority Associated Diagnoses Date/Ti ms EGD Gastroesophageal reflux disease, unspecified whether esophagitis present Colon cancer screening Dysphagia, unspecified type 12/17/2024 8:31 AM EDT COLONOSCOPY W/ OR W/O BIOPSY Gastroesophageal reflux disease, unspecified whether esophagitis present Colon cancer screening Dysphagia, unspecified type 12/17/2024 8:31 AM EDT documented as of this encounter Visit Diagnoses Not on filedocumented in this encounter Care Teams Admissions Assistant Relationship Specialty Start Date End Date Toby Riley MD [address] [place] [address] PCP - General Family Medicine 12/17/11 documented as of this encounter
--- OUTSIDE RECORDS SUMMARY | 2024-10-28 12:59 | XMS_ITS | Encounter Summary ---
Author Organization [facility] Address [facility] [place] [address] Care Team Providers Care Chief Sustainability Officer Name Role Phone Toby Riley MD Primary Care Provider [phone] Source Comments This information has been disclosed [...] release of HIV test results or diagnoses. [id number] Health Encounter Details Date Type Department Care Team (Latest Contact Info) Description 09/01/2024 Rx Prior Authorization [facility] Gastroenterology at [place] [facility] [address] [place] [phone] Trish Moore RN Social History Tobacco Use Types Packs/Day Years [...] encounter Miscellaneous Notes * Telephone Encounter - Sonja Tucker PharmD - 09/10/2024 10:45 AM EDT Images from the original note were not included. Prior authorization has been denied by insurance for 2 x 72 mcg dose of Linzess with response that quantity is not covered. Linzess is commercially available as a 145 mcg dose. PAP rep Pat Lightstreet reached out to PA team checking on determination of PA. Informed Pat that provider should change Rx to Linzess 145 mcg 1 per day dose as most insurance plans will not allow 2 x a lower dose when higher strength is commercially available. Asked Pat to have provider sent corrected Rx to pharmacy. Pharmacy can then process claim and PA may not even be needed. However, if it IS needed, it is more likely katja approved when using the appropriate strength. Closing this encounter as denied and routing back to the provider. OF NOTE: Patient has been contacting Pat in PAP for status checks of PA but Pat does not work in the PA dept. I informed Pat to have patient reach out to her provider for additional info from here out as patient states she does not qualify for assistance because she makes too much. documented in this encounter Plan of Treatment Upcoming Encounters Date Type Department Care Team (Late st Contact Info) Description 12/17/2024 8:31 AM EDT Hospital Encounter [facility] ENDOSCOPY [address] [place] [address] Carlos Hernandez MD [address] [place] [address] [place] [phone] 12/17/2024 8:31 AM EDT - 12/17/2024 9:31 AM EDT Surgery [facility] ENDOSCOPY [address] [place] [phone] Carlos Hernandez MD [address] [place] [phone] EGD Scheduled Procedures Name Priority Associated Diagnoses [...] on filedocumented in this encounter Care Teams Chief Sustainability Officer Relationship Specialty Start Date End Date Toby Riley MD [address] [place] [address] PCP - General Family Medicine 12/17/11 documented as of this encounter
--- OUTSIDE RECORDS SUMMARY | 2024-10-28 12:59 | XMS_ITS | Clinical Summary ---
Author Organization [facility] Address [address] [place] [address] Care Team Providers Care Asbestos Handler Name Role Phone Toby Riley MD Primary Care Provider [phone] Milo Wong MD Unavailable [phone] Allergies Active Allergy Reactions Criticality Noted Date Comments Morphine Itching High 08/04/2012 Other reaction(s): Intolerance Patient gets hot. Does not like to take it Medications DULoxetine (CYMBALTA) 60 mg Capsule, Delayed Release(E.C.) Take 120 mg by mouth daily. 06/03/2022 Active EPINEPHrine (EPIPEN) 0.3 mg/0.3 mL Auto-Injector epi-pen 12/11/2021 Active furosemide (LASIX) 40 mg tablet Take by mouth daily. 03/23/2022 Active levothyroxine (SYNTHROID) 75 mcg tablet Take by mouth daily. 06/03/2022 Active lisinopriL-hydr ochlorothiazide (ZESTORETIC) 10-12.5 mg per tablet TAKE 1/2 (ONE-HALF) TABLET BY MOUTH DAILY 06/01/2022 Active metFORMIN (GLUCOPHAGE) 500 mg tablet TAKE 2 TABLETS BY MOUTH IN THE MORNING AND 1 IN THE EVENING 05/26/2022 Active Myrbetriq 25 mg Tablet Sustained Release 24 hr 05/30/2022 Activ e Mayzent 2 mg Tablet 06/06/2022 Active topiramate (TOPAMAX) 100 mg Tablet Take by mouth 2 times daily. 04/08/2022 Active Active Problems No known active problems Social History Tobacco Use Types Packs/Day Years Used Date Smoking Tobacco: Every Day Cigarettes Smokeless Tobacco: Never Tobacco Cessation:Ready to Q uit: Not Asked; Counseling Given: Not Answered Comments Unknown Sex and Gender Information Value Date Recorded Sex Assigned at Not on file Legal Sex Female 2:04 PM EST Gender Identity Not on file Sexual Orientation Not on file Last Filed Vital Signs Vital Sign Reading Time Taken Comments Blood Pressure - - Pulse - - Temperature - - Respiratory Rate 18 06/07/2022 11:00 AM EST Oxygen Saturation - - Inhaled Oxygen Concentration - - Weight 121.1 kg (267 lb) 06/07/2022 11:00 AM EST Height 162.6 cm (5' 4 ) 06/07/2022 11:00 AM EST Body Mass Index 45.83 06/07/2022 11:00 AM EST Plan of Treatment Health Maintenance Due Date Last Done Comments Cologuard 1977 Colonoscopy 1977 Colorectal Cancer Screening 1977 FIT 1977 Lipid Screening 1995 Tetanus Vaccination (Every 10 Years) 1995 Cervical Cancer Screening 1998 COVID-19 Vaccine (2023- season) 2023 Depression Screening 04/21/2024 Influenza Vaccination (#1) 2024 Insurance MEDICARE Member Subscriber Plan / Payer (Ef fective 2017-Present) Name:Anastasiya Matute Member ID:[id number] Relation to Subscriber:Self Name:Anastasiya Matute Subscriber ID:[id number] Payer ID:[id number] Group ID:Not on file Type:Medicare Address: [address] Member Subscriber Plan / Payer (Ef fective 2020-Present) Name:Anastasiya Matute Relation to Subscriber:Spouse Name:OSCAR MATUTE JR, V Date of :1973 (Home) Address: [address] [place] [address] Payer ID:[id number] (NAIC) Type:PPO Address: [facility] [id number] [place] [id number] Care Teams Asbestos Handler Relationship Specialty Start Date End Date Toby Riley MD [address] [place] [address] PCP - General Family Medicine 06/07/22 Milo Wong MD [address] [facility]. [address] [place] [address] Otolaryngology 06/07/22
--- OUTSIDE RECORDS SUMMARY | 2024-10-28 12:59 | XMS_ITS | Clinical Summary ---
Author Organization [facility] Address [address] [place] [address] Care Team Providers Care Door To Door Sales Representative Name Role Phone Unavailable Primary Care Provider Unavailabl e Social History Tobacco Use Types Packs/Day Years Used Date Smoking Tobacco: Never Assessed Comments Unknown Sex and Gender Information Value Date Recorded Sex Assigned at Not on file Legal Sex Female 7:25 PM EDT Gender Identity Not on file Sexual Orientation Not on file Plan of Treatment Health Maintenance Due Date Last Done Comments DTap,Tdap,and Td (1 - Tdap) 1988 Pap Screening 1998 Mammogram Screening 2017 Colonoscopy 2022 Influenza Vaccine (Season Ended) 2024 RSV Vaccine (60+ or ) (1 - 1-dose 75+ series) 2052 HPV Aged Out No longer eligi ble based on patient's age to complete this topic Meningococcal conjugate alexi nt 4 (MCV4) Aged Out No longer eligible b ased on patient's age to complete this topic Pneumococcal 0-49 Aged Out No longer eligible based on patient's age to complete this topic RSV Immunization (<20 months) Aged Out No longer eligible based on patient's age to complete this topic
--- OUTSIDE RECORDS SUMMARY | 2024-10-28 12:59 | XMS_ITS | Encounter Summary ---
Author Organization [facility] Address [address] [place] [address] Care Team Providers Care Senior Marketing Manager Name Role Phone Toby Riley MD Primary Care Provider [phone] Source Comments This information has been disclosed [...] release of HIV test results or diagnoses. [id number] Health Reason for Visit * Reason Comments Prior Authorization Medication Encounter Details Date Type Department Care Team (Late st Contact Info) Description 09/01/2024 Telephone [facility] Gastroenterology at [place] [facility] [address] [phone] Kate Boswell, LOOP SEWER [address] [place] [address] Prior Authorization (Medication/) Social History Tobacco Use Types Packs/Day Years [...] Telephone Encounter - Trish Moore RN - 09/07/2024 11:07 AM EDT Spoke with patient and informed her that PA is being processed. * Telephone Encounter - Melony Gomez MA - 09/06/2024 8:33 AM EDT Pt called requesting a call back with PA status. Pt can be reached at [phone] * Telephone Encounter - Beth Geronimo MA - 09/01/2024 11:41 AM EDT Please submit a PA for pt's linzess documented in this encounter Plan of Treatment Upcoming Encounters Date Type Department Care Team (Late st Contact Info) Description 12/17/2024 8:31 AM EDT Hospital Encounter [facility] ENDOSCOPY [address] [place] [address] Carlos Hernandez MD [address] [place] [phone] 12/17/2024 8:31 AM EDT - 12/17/2024 9:31 AM EDT Surgery [facility] ENDOSCOPY [address] [place] [phone] Carlos Hernandez MD [address] [place] [phone] EGD Scheduled Procedures Name Priority Associated Diagnoses [...] on filedocumented in this encounter Care Teams Senior Marketing Manager Relationship Specialty Start Date End Date Toby Riley MD [address] [place] [address] PCP - General Family Medicine 12/17/11 documented as of this encounter
--- OUTSIDE RECORDS SUMMARY | 2024-10-28 12:59 | XMS_ITS | Referral Summary ---
Author Organization [facility] Address [address] [address] Care Team Providers Care Survey Director Name Role Phone Unavailable Primary Care Provider Unavailabl e Social History Tobacco Use Types Packs/Day Years Used Date Smoking Tobacco: Never Assessed Comments Unknown Sex and Gender Information Value Date Recorded Sex Assigned at Not on file Legal Sex Female 7:25 PM EDT Gender Identity Not on file Sexual Orientation Not on file Plan of Treatment Not on file
--- OUTSIDE RECORDS SUMMARY | 2024-10-28 12:59 | XMS_ITS | Encounter Summary ---
Author Organization [facility] Address [address] [place] [address] Care Team Providers Care Lath Hand Name Role Phone Toby Riley MD Primary Care Provider [phone] Source Comments This information has been disclosed [...] release of HIV test results or diagnoses. [id number] Reason for Visit * Reason Comments Medication Refill Encounter Details Date Type Department Care Team (Late st Contact Info) Description 08/10/2024 Refill [facility] Neurology at [facility] [place] [address] [facility] [address] [place] [phone] Isai Smyth MD [facility] [place] [place] [address] Social History Tobacco Use Types Packs/Day Years [...] encounter Miscellaneous Notes * Telephone Encounter - Kari Peterson MA - 08/11/2024 7:59 AM EDT Patient Number: [phone] Last Office Visit: 04/26/2024 Isai Smyth MD Next Office Visit: 07/20/2025 Sara Hinton CNP Last date filled: [facility] [place] - [address] [place] [address] [facility] [address] [place] [address] [facility] [address] [facility] [address] [facility] [address] [place] [address] [place] [address] KARI PETERSON MA 08/11/2024 documented in this encounter Plan of Treatment Upcoming Encounters Date Type Department Care Team (Late st Contact Info) Description 12/17/2024 8:31 AM EDT Hospital Encounter [facility] ENDOSCOPY [address] [place] [address] Carlos Hernandez MD [address] [place] [phone] 12/17/2024 8:31 AM EDT - 12/17/2024 9:31 AM EDT Surgery [facility] ENDOSCOPY [address] [place] [phone] Carlos Hernandez MD [address] [place] [phone] EGD Scheduled Procedures Name Priority Associated Diagnoses [...] on filedocumented in this encounter Care Teams Lath Hand Relationship Specialty Start Date End Date Toby Riley MD [address] [place] [address] PCP - General Family Medicine 12/17/11 documented as of this encounter
[2024-10-29 09:52] LABS: Hepatitis B Surface Antigen Negative (Negative)
== END 2024-10-27 23:59 | disposition home or self-care (01) ==
LOC: LAB.DROPOF 10-28 12:54
PROVIDERS: PCP Nurse Practitioner; Visit Provider Nurse Practitioner
DX: E66.9 Obesity, unspecified (principal); E03.9 Hypothyroidism, unspecified; I10 Essential (primary) hypertension; Z11.59 Encounter for screening for other viral diseases
CPT/HCPCS: 80053; 84439; 84443; 86803; 87340; 87389